=== PATIENT | male | born 1995 | race Caucasian/White ===

== ENCOUNTER → 2017-07-23 | Outpatient (CLI) | payer OTHER | END | disposition home or self-care (01) | LOC: C.LAB1850 13:00 | PROVIDERS: ATTEND Internal Medicine Endocrinology, Diabetes & Metabolism | DX: E10.41 Type 1 diabetes mellitus with diabetic mononeuropathy (principal) ==

== ENCOUNTER 2024-03-26 18:57 | Inpatient (IN) ==
[2024-03-26] MEDS: ONDANSETRON INJ 2 MG/ML 2 ML VIAL IV STA (19:46)
[2024-03-26 20:16] LABS: Hematocrit (blood only) 39.2 % (42.0-52.0); Hemoglobin 13.6 g/dl (14.0-18.0); Mean Corpuscular Hemoglobin 30.2 pg (25.0-34.0); Mean Corpuscular Hgb Conc 34.7 g/dL (32.0-36.0); Mean Corpuscular Volume 87.1 fL (80.0-100.0); Mean Platelet Volume 10.7 fL (9.4-12.4); Platelet Count 431 K/uL (130-400); RDW Standard Deviation 38.6 fL (36.4-46.3)
[2024-03-26 20:23] LABS: Anion Gap 11 (3-11); BUN Creatinine Ratio 14.5 (10-20); Blood Urea Nitrogen 21 mg/dl (6-23); Calcium 11.2 mg/dl (8.6-10.3); Carbon Dioxide 27 mmol/L (21-32); Chloride 100 mmol/L (98-107); Est GFR (African American) 74.9 ml/min; Est GFR (Non-African American) 64.6 ml/min; Glucose 149 mg/dl (70-99(Fasting)); Potassium 4.4 mmol/L (3.5-5.1); Sodium 138 mmol/L (136-145)
[2024-03-26 20:24] LABS: Alanine Aminotransferase 18 U/L (7-52); Albumin Globulin Ratio 1.8 (0.9-2); Albumin Level 5.5 gm/dl (3.4-5.0); Alkaline Phosphatase 72 U/L (34-104); Aspartate Aminotransferase 18 U/L (13-39); Bilirubin,Total 0.7 mg/dl (0.2-1.0); Lipase < 3 U/L (11-82); Total Protein 8.5 gm/dl (6.0-8.3)
[2024-03-26 20:31] LABS: Basophils # (auto) 0.06 K/uL (0.00-0.20); Basophils % (auto) 0.3 %; Immature Granulocytes # (auto) 0.08 K/uL (0.01-0.20); Immature Granulocytes % (auto) 0.4 %; Lymphocytes # (auto) 1.25 K/uL (1.20-3.40); Lymphocytes % (auto) 6.2 %; Monocytes # (auto) 0.46 K/uL (0.11-0.59); Monocytes % (auto) 2.3 %; Neutrophils # (auto) 18.35 K/uL (1.40-6.50); Neutrophils % (auto) 90.8 %; Toxic Granulation 1+
[2024-03-26 20:44] LABS: Appearance Urine Clear (Clear); Bacteria Urine Automated None Seen (None Seen); Bilirubin Urine Negative (Negative); Blood Urine Negative (Negative); Cast Urine Automated 0-2 /lpf (0-2); Color Urine Yellow; Epithelial Cell Urine Auto 0-2 /hpf (0-2); Glucose Urine UA Negative (Negative); Ketones Urine 1+ (Negative); Leukocyte Esterase Urine Trace (Negative); Nitrite Urine Negative (Negative); Protein Urine Negative (Negative); RBC Urine Automated 0-2 /hpf (0-2); Specific Gravity Urine 1.016 (1.000-1.030); Urobilinogen Urine Negative (Negative); WBC Urine Automated 0-5 /hpf (0-5)
[2024-03-26] MEDS: OPTIRAY 320 100ml IV ONE (22:21)
[2024-03-26] MEDS: FAMOTIDINE 20MG IV PUSH 20 MG/5 ML SYR IV STA (22:30)
[2024-03-26] MEDS: SODIUM CHLORIDE 0.9% 1,000 ML IV ONE (22:30)
[2024-03-26] MEDS: ACETAMINOPHEN 1,000 MG/100 ML VIAL IV STA (22:30)
[2024-03-26 22:31] LABS: Magnesium 1.9 mg/dl (1.7-2.4)
--- NOTE | 2024-03-26 22:52 | Emergency Department Note ---
History of Present Illness General Chief complaint: Nausea Time Seen by Provider: 03/26/24 21:33 History of Present Illness Maximum Pain Intensity: 9 This 28-year-old male with type 1 diabetes and history of gastroparesis presents ER for nausea vomiting and abdominal pain with concerns for recurrent gastroparesis. Patient normally goes to [facility] or [facility] but came here instead. Patient has chest pain, dyspnea, fever, chills, diarrhea, flulike illness, bad food exposure. Home Medications Medication Instructions Recorded Confirmed Type cyclobenzaprine 5 mg tablet 5 mg PO HS PRN MUSCLE SPASMS 04/30/19 03/26/24 History ergocalciferol (vitamin D2) 1,250 50,000 units PO WK 04/30/19 03/26/24 History mcg (50,000 unit) capsule ibuprofen 600 mg tablet 600 mg PO TID PRN fever or pain 04/30/19 03/26/24 History lancets (Microlet Lancet) #50 ea 04/30/19 03/18/24 History blood sugar diagnostic (Contour #100 ea 12/18/20 03/18/24 Rx Next Test Strips) blood-glucose meter,continuous #1 ea 12/18/20 03/18/24 Rx (Dexcom Briar Shop Supervisor) blood-glucose sensor (Dexcom G6 #3 ea 12/18/20 03/18/24 Rx Sensor device) blood-glucose transmitter (Dexcom #1 ea 12/18/20 03/18/24 Rx G6 Transmitter device) urine glucose-ketones test #50 ea 12/18/20 03/18/24 Rx (Keto-Diastix strips) lamotrigine 100 mg tablet 100 mg PO DAILY 03/18/24 03/26/24 History (Lamictal) levothyroxine 300 mcg tablet 300 mcg PO DAILY 03/18/24 03/26/24 History (Synthroid) linaclotide 145 mcg capsule 145 mcg PO DAILY #30 caps 03/18/24 03/26/24 Rx (Linzess) trazodone 50 mg tablet 50 mg PO DAILY 03/18/24 03/26/24 History glucagon HCl 1 mg/mL solution for 1 mg subcut DIRECTED PRN 03/26/24 03/26/24 History injection Hypoglycemia insulin aspart U-100 100 unit/mL 0 unit continuous subcutaneous 06/21/24 06/21/24 History subcutaneous solution (Novolog infusion CONTINOUS U-100 Insulin aspart) insulin glargine 100 unit/mL (3 25 unit subcut .COMPLEX PRN PUMP 03/26/24 03/26/24 History mL) subcutaneous pen (Basaglar FAILURE KwikPen U-100 Insulin) Allergies Allergy/AdvReac Type Severity Reaction Status Date / Time tramadol Allergy Intermediate Hives Verified 03/26/24 22:45 metoclopramide [From Reglan] AdvReac Unknown CAN'T Verified 03/26/24 22:45 REMEMBER Past Med/Surg History Problem List (Updated 03/27/24 @ 00:49 by Karly Sargent PA-C) Esophagitis (Acute) Abdominal pain (Acute) Intractable nausea and vomiting (Acute) Nausea & vomiting Constipation Gastroparesis Hypothyroidism, postablative (Acute) Uncontrolled type 1 diabetes mellitus (Acute) Social History Smoking Status: Current every day smoker Tobacco Type: E-cigarettes / Vaping Preferred Language: Arabic Feels Safe at Home: Yes Review of Systems A total of 10 systems reviewed and were otherwise negative Physical Exam Vital Signs Vital Signs - 24 hr 03/26/24 19:09 03/26/24 21:29 03/26/24 22:33 Temperature 37.3 C Temperature Source Oral Pulse Rate 119 H Pulse Rate [Finger] 98 H 98 H Pulse Rhythm [Finger] Regular Pulse Strength [Finger] Normal Respiratory Rate 20 20 16 Respiratory Effort / Characteristics Non-Labored Spontaneous Respiratory Depth Normal Blood Pressure 157/111 H Blood Pressure [Left Arm] 140/95 157/98 H Blood Pressure Mean 126 Blood Pressure Mean [Left Arm] 110 117 Blood Pressure Position [Left Arm] Sitting Pulse Oximetry 100 97 98 Oxygen Delivery Method Room Air Room Air Room Air Sepsis Recent Fever Within 48 Hours No Sepsis New/Unexplained Change in Mental Status No Sepsis Action Taken by Nursing No Action Required 03/26/24 23:00 Temperature Temperature Source Pulse Rate Pulse Rate [Finger] 102 H Pulse Rhythm [Finger] Pulse Strength [Finger] Respiratory Rate 18 Respiratory Effort / Characteristics Respiratory Depth Blood Pressure Blood Pressure [Left Arm] 123/87 Blood Pressure Mean Blood Pressure Mean [Left Arm] 99 Blood Pressure Position [Left Arm] Pulse Oximetry 96 Oxygen Delivery Method Sepsis Recent Fever Within 48 Hours Sepsis New/Unexplained Change in Mental Status Sepsis Action Taken by Nursing VITALS: Vitals are noted on the nurse's note and reviewed by myself. Vital signs stable. GENERAL: Pleasant patient with family present, in no acute distress, nondiaphoretic, well-developed well-nourished. SKIN: Capillary reflex less than 2 seconds. HEENT: Normocephalic. PERRLA. EOMI. Nares patent. Mucous membranes moist. Neck is supple without nuchal rigidity. HEART: Regular rate and rhythm LUNGS: Clear to auscultation bilaterally without wheezes, rales or rhonchi. No retractions or accessory muscle use. ABDOMEN: Positive bowel sounds x 4. Normal tympanic percussion. Soft, diffusely tender to palpation, without masses or organomegaly. Velasquez sign negative. No guarding or rebound tenderness. no CVA tenderness MUSCULOSKELETAL: No gross musculoskeletal defects. NEURO: Patient was alert and oriented to person place and time. No focal neurological deficits. Course Administered Medications Discontinued Medications Dicyclomine HCl (Dicyclomine Hcl 10 Mg/Ml 2 Ml Amp/Vial) 20 mg IM NOW ONE Stop: 03/26/24 23:37 Last Admin: 03/27/24 00:07 Dose: 20 mg Documented By: ALICIA Sodium Chloride (Nss) 1,000 mls @ 999 mls/hr IV .Q1H1M ONE Stop: 03/26/24 22:59 Last Infusion: 03/26/24 23:40 Dose: Infused Documented By: Admin: 03/26/24 22:30 Dose: 999 mls/hr Documented By: DADA Famotidine (Pepcid 20mg Iv Push) 20 mg in 5 mls @ 2.5 mls/min IV NOW STA Stop: 03/26/24 22:00 Last Admin: 03/26/24 22:30 Dose: 2.5 mls/min Documented By: DADA Acetaminophen (Ofirmev) 1,000 mg in 100 mls @ 400 mls/hr IV NOW STA Stop: 03/26/24 22:13 Last Infusion: 03/26/24 22:45 Dose: Infused Documented By: Admin: 03/26/24 22:30 Dose: 400 mls/hr Documented By: DADA Lactated Ringer's (Lr) 1,000 mls @ 999 mls/hr IV .Q1H1M ONE Stop: 03/27/24 00:37 Last Admin: 03/27/24 00:08 Dose: 999 mls/hr Documented By: ALICIA Promethazine HCl (Phenergan) 25 mg in 51 mls @ 204 mls/hr IV NOW STA Stop: 03/27/24 00:24 Last Infusion: 03/27/24 00:40 Dose: Infused Documented By: Admin: 03/27/24 00:24 Dose: 204 mls/hr Documented By: ALICIA Ioversol (Optiray 320 100ml) 89 ml IV ONCE ONE Stop: 03/26/24 22:21 Last Admin: 03/26/24 22:21 Dose: 89 ml Documented By: CLARE Ondansetron HCl (Ondansetron Inj 2 Mg/Ml 2 Ml Vial) 4 mg IV NOW STA Stop: 03/26/24 19:43 Last Admin: 03/26/24 19:46 Dose: 4 mg Documented By: JASWINDER Medical Decision Making Medical Records Attestation: I reviewed the patient's medical records. Home Medications Current Medication List: was personally reviewed by me Laboratory Data Attestation: I reviewed the patient's lab results. 03/26/24 19:46 03/26/24 19:46 Lab Results 03/26/24 03/26/24 Range/Units 19:44 19:46 WBC 20.20 H (4.8-10.8) K/ul RBC 4.50 L (4.70-6.10) M/uL Hgb 13.6 L (14.0-18.0) g/dl Hct 39.2 L (42.0-52.0) % MCV 87.1 (80.0-100.0) fL MCH 30.2 (25.0-34.0) pg MCHC 34.7 (32.0-36.0) g/dL RDW Std Deviation 38.6 (36.4-46.3) fL RDW Coeff of [place] 12.0 (11.5-14.5) % Plt Count 431 H (130-400) K/uL MPV 10.7 (9.4-12.4) fL Immature Gran % (Auto) 0.4 % Neut % (Auto) 90.8 % Lymph % (Auto) 6.2 % Parker % (Auto) 2.3 % Eos % (Auto) 0.0 % Baso % (Auto) 0.3 % Neut # (Auto) 18.35 H (1.40-6.50) K/uL Lymph # (Auto) 1.25 (1.20-3.40) K/uL Parker # (Auto) 0.46 (0.11-0.59) K/uL Eos # (Auto) 0.00 (0.00-0.50) K/uL Baso # (Auto) 0.06 (0.00-0.20) K/uL Immature Gran # (Auto) 0.08 (0.01-0.20) K/uL Toxic Granulation 1+ Sodium 138 (136-145) mmol/L Potassium 4.4 (3.5-5.1) mmol/L Chloride 100 (98-107) mmol/L Carbon Dioxide 27 (21-32) mmol/L Anion Gap 11 (3-11) BUN 21 (6-23) mg/dl Creatinine 1.45 H (0.6-1.4) mg/dl Est Cr Clr Drug Dosing 61.0 ml/min Est GFR ( Amer) 74.9 ml/min Est GFR (Non-Af Amer) 64.6 ml/min BUN/Creatinine Ratio 14.5 (10-20) Glucose 149 H (70-99(Fasting)) mg/dl POC Glucose 146 H (70-99) mg/dl Calcium 11.2 H (8.6-10.3) mg/dl Magnesium 1.9 (1.7-2.4) mg/dl Total Bilirubin 0.7 (0.2-1.0) mg/dl AST 18 (13-39) U/L ALT 18 (7-52) U/L Alkaline Phosphatase 72 (34-104) U/L Total Protein 8.5 H (6.0-8.3) gm/dl Albumin 5.5 H (3.4-5.0) gm/dl Globulin 3.0 (2.5-4.0) gm/dl Albumin/Globulin Ratio 1.8 (0.9-2) Lipase < 3 L (11-82) U/L Urine Color Yellow Urine Appearance Clear (Clear) Urine pH 7.0 (4.5-7.5) Ur Specific [place] 1.016 (1.000-1.030) Urine Protein Negative (Negative) Urine Glucose (UA) Negative (Negative) Urine Ketones 1+ H (Negative) Urine Blood Negative (Negative) Urine Nitrite Negative (Negative) Urine Bilirubin Negative (Negative) Urine Urobilinogen Negative (Negative) Ur Leukocyte Esterase Trace H (Negative) Urine WBC (Auto) 0-5 (0-5) /hpf Urine RBC (Auto) 0-2 (0-2) /hpf U Hyaline Cast (Auto) 0-2 (0-2) /lpf U Epithel Cells (Auto) 0-2 (0-2) /hpf Urine Bacteria (Auto) None Seen (None Seen) Urine Opiates Screen Neg (Neg) Ur Methadone, Qual Neg (Neg) Urine Fentanyl Screen Neg (Neg) Urine Barbiturates Neg (Neg) Ur Phencyclidine (PCP) Neg (Neg) U Amphetamin/Meth Scrn Neg (Neg) MDMA (Ecstasy) Screen Neg (Neg) U Benzodiazepines Scrn Neg (Neg) Ur Cocaine Metabolite Neg (Neg) U Marijuana (THC) Screen Neg (Neg) Imaging Data Attestation: I personally reviewed and interpreted this imaging study as follows: Radiologist's Impression: Abdomen/Pelvis CT 03/26/24 21:59 Exam(s): CT ABDOMEN + PELVIS With Contrast IV Amt: 89 ml optiray 320 EXAM: CT Abdomen and Pelvis With Intravenous Contrast CLINICAL HISTORY: Reason for exam: n/v, mid abd pain. TECHNIQUE: Axial computed tomography images of the abdomen and pelvis with intravenous contrast. CTDI is 7.22 mGy and DLP is 330.84 mGy-cm. Automated exposure control was utilized for the study. A dose lowering technique was utilized adhering to the principles of ALARA. CONTRAST: Patient received 89 ml optiray 320 of IV contrast COMPARISON: No relevant prior studies available. FINDINGS: Lung bases: Unremarkable. No mass. No consolidation. Mediastinum: Distal esophageal wall thickening. ABDOMEN: Liver: Unremarkable. No mass. Gallbladder and bile ducts: Unremarkable. No calcified stones. No ductal dilation. Pancreas: Unremarkable. No mass. No ductal dilation. Spleen: Unremarkable. No splenomegaly. Adrenals: Unremarkable. No mass. Kidneys and ureters: Hyperdensities within the kidneys likely reflects contrast excretion rather than stones. No hydronephrosis. Stomach and bowel: Unremarkable. No obstruction. No mucosal thickening. PELVIS: Appendix: Right lower quadrant postsurgical changes, likely appendectomy. Bladder: Bladder wall thickening of somewhat distended bladder. Reproductive: Unremarkable as visualized. ABDOMEN and PELVIS: Intraperitoneal space: Minimal free fluid in the pelvis. No free air. Bones/joints: No acute fracture. No dislocation. Soft tissues: Unremarkable. Vasculature: Unremarkable. No abdominal aortic aneurysm. Lymph nodes: Unremarkable. No enlarged lymph nodes. IMPRESSION: 1. Distal esophageal wall thickening. May represent esophagitis. 2. Bladder wall thickening of somewhat distended bladder. Correlate for cystitis. 3. Minimal free fluid in the pelvis. Nonspecific although atypical in males. Electronically signed by: Foreign Rhodes M.D. 03/27/24 00:22 AM MDM Narrative Prior records/ancillary studies reviewed. Triage Nursing notes reviewed. Additional history obtained from family. The patient's history was concerning for nausea vomiting and abdominal pain. Differential diagnosis: Etiologies such as gastroparesis, DKA, appendicitis, diverticulitis, PUD, biliary pathology, UTI, pancreatitis, obstruction, mesenteric ischemia, aortic pathology, infections, inflammatory bowel disease, renal colic, as well as others were entertained. Physical examination findings: As above. ER treatment provided: An order was placed for continuous cardiac monitoring. The monitor shows a rate of 60-100 with a sinus rhythm per my Independent interpretation. IV fluids, Zofran, Pepcid, Tylenol was ordered, Protonix for esophagitis was ordered Phenergan and Bentyl were given On reassessment the patient felt better. Diagnostics interpreted by me: The labs Independently Interpreted by myself revealed leukocytosis, negative urine, hyperglycemia without DKA Imaging studies: CT as above Consultation: A consultation was placed with the hospitalist. The case was discussed and diagnostics were reviewed. The patient was evaluated in the ER for further treatment. Exam and history seem consistent with intractable nausea and vomiting. Patient still felt quite nauseous. He is requesting admission. Medicine was consulted and case discussed. He will be evaluated by the medical service for possible admission. By the evaluation outlined above emergent etiologies such as appendicitis, diverticulitis, PUD, biliary pathology, UTI, pancreatitis, obstruction, mesenteric ischemia, aortic pathology, inflammatory bowel disease, renal colic, as well as others were deemed relatively unlikely. The pt informed about the findings as listed above. All questions were answered and pleased with the treatment. The chart was completed utilizing [employer] voice recognition software. Grammatical errors, random word insertions, pronoun errors, and incomplete sentences are an occassional consequence of this system due to software limitations, ambient noise, and hardware issues. Any formal questions or concerns about the content, text, or information contained within the body of this dictation should be directly addressed to the physician personal care assistant for clarification. Impression & Plan Intractable nausea and vomiting, Abdominal pain, Esophagitis Discharge Plan Visit Data Chief Complaint: Nausea ED Provider: Jose Hernandez ED Midlevel Provider: Kalry Sargent Discharge Problem: Intractable nausea and vomiting, Abdominal pain, Esophagitis Patient Disposition: Being Evaluated by Hospitalist Condition: Good Forms Stand Alone Forms: [facility] [employer] Prescriptions Prescriptions: No Action cyclobenzaprine 5 mg tablet 5 mg PO HS PRN (Reason: MUSCLE SPASMS) ibuprofen 600 mg tablet 600 mg PO TID PRN (Reason: fever or pain) (DME) lancets [Microlet Lancet] misc See Dose Instructions .ROUTE .MEDSUPPLY Qty: 50 Rx Instructions: Check blood sugars 6 times daily ergocalciferol (vitamin D2) 50,000 unit capsule 50,000 units PO WK (DME) Contour Next Test Strips Strip See Dose Instructions .ROUTE .MEDSUPPLY Qty: 100 2RF Rx Instructions: use to check blood sugars 6 times daily or as directed (DME) Dexcom [employer]ar [employer] Supervisor Misc See Rx Instructions .ROUTE .MEDSUPPLY Qty: 1 0RF Rx Instructions: As directed (DME) Dexcom G6 Sensor Device See Rx Instructions .ROUTE .MEDSUPPLY Qty: 3 11RF Rx Instructions: As directed (DME) Dexcom G6 Transmitter Device See Rx Instructions .ROUTE .MEDSUPPLY Qty: 1 3RF Rx Instructions: As directed (DME) Keto-Diastix Strip See Dose Instructions .ROUTE .MEDSUPPLY Qty: 50 0RF Rx Instructions: As directed levothyroxine [Synthroid] 300 mcg tablet 300 mcg PO DAILY lamotrigine [Lamictal] 100 mg tablet 100 mg PO DAILY trazodone 50 mg tablet 50 mg PO DAILY Linzess 145 mcg capsule 145 mcg PO DAILY Qty: 30 2RF insulin aspart U-100 [Novolog U-100 Insulin aspart] 100 unit/mL solution 0 unit continuous subcutaneous infusion CONTINOUS Rx Instructions: insulin pump subcut daily; TDD 70 units insulin glargine [Basaglar KwikPen U-100 Insulin] 100 unit/mL (3 mL) insulin pen 25 unit SQ .COMPLEX PRN (Reason: PUMP FAILURE) Rx Instructions: 25 units subcut in case of pump failure glucagon HCl 1 mg/mL recon soln 1 mg subcut DIRECTED PRN (Reason: Hypoglycemia) Rx Instructions: 1 mg subcut use as directed for hypoglycemic emergency; Referrals Referrals: Dimas Pierce D.O. [Primary Care Provider] -
[2024-03-26 23:16] LABS: Amphetamines+Metham, Urine Neg (Neg); Barbiturates, Urine Neg (Neg); Benzodiazepine, Urine Neg (Neg); Cocaine, Urine Neg (Neg); Fentanyl, Urine Neg (Neg); MDMA (Ecstacy), Urine Neg (Neg); Marijuana, Urine Neg (Neg); Methadone, Urine Neg (Neg); Opiate, Urine Neg (Neg); Phencyclidine, Urine Neg (Neg)
[2024-03-27] MEDS: DICYCLOMINE HCL 10 MG/ML 2 ML AMP/VIAL IM ONE (00:07)
[2024-03-27] MEDS: LACTATED RINGER'S 1,000 ML IV ONE (00:08)
--- NOTE | 2024-03-27 00:23 | CT Scan Report ---
Exam(s): CT ABDOMEN + PELVIS With Contrast IV Amt: 89 ml optiray 320 EXAM: CT Abdomen and Pelvis With Intravenous Contrast CLINICAL HISTORY: Reason for exam: n/v, mid abd pain. TECHNIQUE: Axial computed tomography images of the abdomen and pelvis with intravenous contrast. CTDI is 7.22 mGy and DLP is 330.84 mGy-cm. Automated exposure control was utilized for the study. A dose lowering technique was utilized adhering to the principles of ALARA. CONTRAST: Patient received 89 ml optiray 320 of IV contrast COMPARISON: No relevant prior studies available. FINDINGS: Lung bases: Unremarkable. No mass. No consolidation. Mediastinum: Distal esophageal wall thickening. ABDOMEN: Liver: Unremarkable. No mass. Gallbladder and bile ducts: Unremarkable. No calcified stones. No ductal dilation. Pancreas: Unremarkable. No mass. No ductal dilation. Spleen: Unremarkable. No splenomegaly. Adrenals: Unremarkable. No mass. Kidneys and ureters: Hyperdensities within the kidneys likely reflects contrast excretion rather than stones. No hydronephrosis. Stomach and bowel: Unremarkable. No obstruction. No mucosal thickening. PELVIS: Appendix: Right lower quadrant postsurgical changes, likely appendectomy. Bladder: Bladder wall thickening of somewhat distended bladder. Reproductive: Unremarkable as visualized. ABDOMEN and PELVIS: Intraperitoneal space: Minimal free fluid in the pelvis. No free air. Bones/joints: No acute fracture. No dislocation. Soft tissues: Unremarkable. Vasculature: Unremarkable. No abdominal aortic aneurysm. Lymph nodes: Unremarkable. No enlarged lymph nodes. IMPRESSION: 1. Distal esophageal wall thickening. May represent esophagitis. 2. Bladder wall thickening of somewhat distended bladder. Correlate for cystitis. 3. Minimal free fluid in the pelvis. Nonspecific although atypical in males. Electronically signed by: Foreign Rhodes M.D. 03/27/24 00:22 AM
[2024-03-27] MEDS: PROMETHAZINE 25 MG/51 ML BAG IV STA (00:24)
--- NOTE | 2024-03-27 01:43 | History & Physical Report ---
"Date of Service March 27, 2024 Assessment & Plan (1) Esophagitis: (2) Nausea & vomiting: (3) Gastroparesis: (4) Constipation: (5) Hypothyroidism, postablative: (6) Uncontrolled type 1 diabetes mellitus: Carolina Uribe is a 28M w/ PMH of T1DM, hypothyroidism, gastroparesis, and constipation who presents for evaluation of nausea and vomiting. Esophagitis | Nausea/Emesis & Constipation - Patient with known uncontrolled T1DM - GI record review notes that patient often has nausea/emesis flares in setting of constipation - Admissions q2-3 weeks for nausea/emesis in setting of gastroparesis over last 3-4 months Typically presents to [facility] - CTAP w/ evidence of esophagitis and increased stool burden Continue Pantoprazole, start Carafate for Esophagitis Start Miralax BID scheduled for constipation - Leukocytosis w/ neutrophil predominance on presentation Afebrile, hemodynamically stable - Calcium level elevated, but w/ albumin level, corrected to 10 (wnl) - LR @ 125 mL/hr started on admission T1DM | Gastroparesis - Continue own CGM and Pump - AM A1c pending Elevated Creatinine (1.45) - Baseline uncertain, trend inpatient - Fluid resuscitation provided as above Chronic Conditions - Hypothyroidism - continue Synthroid - Mental Health - continue Lamotrigine and Trazodone History of Present Illness Primary Care Provider: Solomon Taviaceline Uribe is a 28M w/ PMH of T1DM, hypothyroidism, gastroparesis, and constipation who presents for evaluation of nausea and vomiting. Patient sleeping upon arrival and unwilling to awaken to provide history. Girlfriend at bedside, noting patient presenting for nausea and vomiting and that this has been happening frequently over the last 3-4 months. She notes no changes in his home T1DM management, but states that he remains constipated despite Linzess and has not been using Miralax. Patient continues to use CGM and pump (which is currently full). He has a longstanding history of gastroparesis with associated nausea and emesis. Prior GI notes indicating that emesis episodes often correlate with constipation. No further HPI from patient. Allergies Allergy/AdvReac Type Severity Reaction Status Date / Time tramadol Allergy Intermediate Hives Verified 03/26/24 22:45 metoclopramide [From Reglan] AdvReac Unknown CAN'T Verified 03/26/24 22:45 REMEMBER Home Medications Medication Instructions Recorded Confirmed Type cyclobenzaprine 5 mg tablet 5 mg PO HS PRN MUSCLE SPASMS 04/30/19 03/26/24 History ergocalciferol (vitamin D2) 1,250 50,000 units PO WK 04/30/19 03/26/24 History mcg (50,000 unit) capsule ibuprofen 600 mg tablet 600 mg PO TID PRN fever or pain 04/30/19 03/26/24 History lancets (Microlet Lancet) #50 ea 04/30/19 03/18/24 History blood sugar diagnostic (Contour #100 ea 12/18/20 03/18/24 Rx Next Test Strips) blood-glucose meter,continuous #1 ea 12/18/20 03/18/24 Rx ([employer] Compliance Manager) blood-glucose sensor (Dexcom G6 #3 ea 12/18/20 03/18/24 Rx Sensor device) blood-glucose transmitter (Dexcom #1 ea 12/18/20 03/18/24 Rx G6 Transmitter device) urine glucose-ketones test #50 ea 12/18/20 03/18/24 Rx (Keto-Diastix strips) lamotrigine 100 mg tablet 100 mg PO DAILY 03/18/24 03/26/24 History (Lamictal) levothyroxine 300 mcg tablet 300 mcg PO DAILY 03/18/24 03/26/24 History (Synthroid) linaclotide 145 mcg capsule 145 mcg PO DAILY #30 caps 03/18/24 03/26/24 Rx (Linzess) trazodone 50 mg tablet 50 mg PO DAILY 03/18/24 03/26/24 History glucagon HCl 1 mg/mL solution for 1 mg subcut DIRECTED PRN 03/26/24 03/26/24 History injection Hypoglycemia insulin aspart U-100 100 unit/mL 0 unit continuous subcutaneous 03/26/24 03/26/24 History subcutaneous solution (Novolog infusion CONTINOUS U-100 Insulin aspart) insulin glargine 100 unit/mL (3 25 unit subcut .COMPLEX PRN PUMP 03/26/24 03/26/24 History mL) subcutaneous pen (Basaglar FAILURE KwikPen U-100 Insulin) Past Med/Surg History Problem List (Updated 03/27/24 @ 00:49 by Karly Sargent PA-C) Esophagitis (Acute) Abdominal pain (Acute) Intractable nausea and vomiting (Acute) Nausea & vomiting Constipation Gastroparesis Hypothyroidism, postablative (Acute) Uncontrolled type 1 diabetes mellitus (Acute) Social History Smoking Status: Current every day smoker Tobacco Type: E-cigarettes / Vaping Do You Dip or Chew Tobacco: No; Hx Alcohol Use: No Hx Substance Use: No Preferred Language: Spanish Communication Ability: Effective Communication Ability Comment: pt is very fatigued at this time Beef Trimmer Required: No Beliefs That Will Affect Care: None Current Living Situation: Other Current Living Situation Comment: with friend Other Information That Helps Us Care for You: No Feels Safe at Home: Yes Safety Concerns: Feels Safe At This Time Assistive Devices: Glasses and Other Assistive Devices Comment: Medtronic insulin pump, Dexcom continuous glucose mo nitor Physical Exam Physical Exam: Gen: Asleep, arousable, unwilling to converse HEENT: Supple, no LAD, dry mucous membranes Resp:Non-labored, no wheezing/rhonchi/rales, CTAB CV:RRR, normal S1/S2, no M/R/G Abd: Soft, non-distended, TTP throughout, no rebound or guarding, normoactive bowels, no masses Extr: 2+ dp bilaterally, no edema Skin: No rashes lesions or erythema Results & Data Results & Data Vital Signs (Past 12 Hours) Vital Signs Temp Pulse Pulse Resp BP BP Pulse Ox 03/27/24 01:00 96 H 16 106/65 94 03/27/24 00:00 103 H 17 119/76 95 03/26/24 23:00 102 H 18 123/87 96 03/26/24 22:33 98 H 16 157/98 H 98 03/26/24 21:29 98 H 20 140/95 97 03/26/24 19:09 37.3 C 119 H 20 157/111 H 100 O2 Del Method 03/27/24 01:00 03/27/24 00:00 03/26/24 23:00 03/26/24 22:33 Room Air 03/26/24 21:29 Room Air 03/26/24 19:09 Room Air Supervising Physician Co-Signing Physician Notes Attending addendum: I have physically seen this patient, have supervised the medical residents activities, and agree with the H&P unless as otherwise noted. Assessment and Plan: Esophagitis/gastroparesis/intractable nausea and vomiting- Symptoms are noted to occur secondary to constipation per GI notes Frequent hospitalizations at [place] and out to the hospitals as noted over the past few months Pantoprazole 40 mg p.o. twice daily Start Carafate MiraLAX twice daily as noted for constipation Recently started on Linzess by GI Has failed multiple medications in the past Outpatient GI notes have recommended tertiary care assessment more advanced treatment Diabetes mellitus- Patient will continue on pump Hemoglobin A1c pending Acute kidney injury- Creatinine 1.45, with base 1.26 IV fluids as noted Recheck laboratories in the a.m. Resident Activity Tracking Resident Involvement: Resident Care Provided Care Provided: Adult Hospital Medicine"
[2024-03-27] MEDS: PANTOprazole 80 MG in DEXTROSE 5% 100 ML IV STA (01:59)
[2024-03-27] MEDS ORDERED: DEXTROSE 50% 50 ML SYRINGE IV PRN (03:45)
[2024-03-27] MEDS ORDERED: INSULIN, Rapid-Acting PUMP SC SCH (03:45)
[2024-03-27] MEDS ORDERED: INSULIN ASPART 100 UNITS/ML VIAL SC PRN (03:45)
[2024-03-27] MEDS ORDERED: CARBOHYDRATES FOR HYPOGLYCEMIA PO PRN (03:45)
[2024-03-27] MEDS ORDERED: GLUCOSE 40% GEL 15 GM TUBE PO PRN (03:45)
[2024-03-27] MEDS ORDERED: GLUCAGON FOR INJ 1 MG VIAL SQ PRN (03:45)
[2024-03-27] MEDS ORDERED: GLUCOSE 10 TAB/TUBE PO PRN (03:45)
[2024-03-27] MEDS: LACTATED RINGER'S 1,000 ML IV SCH (05:22)
[2024-03-27] MEDS: ONDANSETRON INJ 2 MG/ML 2 ML VIAL IV PRN (05:48)
[2024-03-27] MEDS: Continuous Glucose Monitor SCH ×2 (06:24→17:01)
[2024-03-27] MEDS: LEVOTHYROXINE SODIUM 150 MCG TABLET PO SCH (06:25)
[2024-03-27] MEDS: IBUPROFEN 600 MG TAB PO PRN (07:57)
[2024-03-27] MEDS: PROMETHAZINE HCL 6.25 MG in SODIUM CHLORIDE 0.9% 50 ML IV PRN (08:08)
[2024-03-27] MEDS: PANTOprazole 40 MG in SYRINGE 0 ML IV SCH (08:56)
[2024-03-27] MEDS: POLYETHYLENE (MIRALAX) 17 GM PACK PO SCH (08:56)
[2024-03-27] MEDS: lamoTRIgine 100 MG TAB PO SCH (08:56)
[2024-03-27] MEDS: SUCRALFATE 1 GM/10 ML UDC PO SCH (08:57)
[2024-03-27] MEDS: LINACLOTIDE 145 MCG CAPSULE PO SCH (08:57)
[2024-03-27] MEDS ORDERED: traZODone HCL 50 MG TAB PO SCH (09:00)
[2024-03-27] MEDS: ACETAMINOPHEN 1,000 MG/100 ML VIAL IV PRN (10:18)
[2024-03-27 10:35] LABS: Hematocrit (blood only) 30.8 % (42.0-52.0); Hemoglobin 10.5 g/dl (14.0-18.0); Mean Corpuscular Hemoglobin 30.2 pg (25.0-34.0); Mean Corpuscular Hgb Conc 34.1 g/dL (32.0-36.0); Mean Corpuscular Volume 88.5 fL (80.0-100.0); Mean Platelet Volume 11.1 fL (9.4-12.4); Platelet Count 305 K/uL (130-400); RDW Coefficient of Variation 12.3 % (11.5-14.5); RDW Standard Deviation 39.7 fL (36.4-46.3); Red Blood Count 3.48 M/uL (4.70-6.10); White Blood Count 16.78 K/ul (4.8-10.8)
[2024-03-27 10:36] LABS: Estimated Average Glucose 143 mg/dl; Hemoglobin A1C 6.6 % (4.5-5.6)
[2024-03-27 10:37] LABS: Alanine Aminotransferase 12 U/L (7-52); Albumin Globulin Ratio 1.8 (0.9-2); Alkaline Phosphatase 53 U/L (34-104); Anion Gap 6 (3-11); Aspartate Aminotransferase 14 U/L (13-39); BUN Creatinine Ratio 13.8 (10-20); Bilirubin,Total 0.5 mg/dl (0.2-1.0); Blood Urea Nitrogen 18 mg/dl (6-23); Calcium 9.6 mg/dl (8.6-10.3); Carbon Dioxide 27 mmol/L (21-32); Chloride 108 mmol/L (98-107); Creatinine Clr Calc Pharmacy 68.5 ml/min; Est GFR (African American) 85.5 ml/min; Est GFR (Non-African American) 73.7 ml/min; Globulin 2.2 gm/dl (2.5-4.0); Glucose 112 mg/dl (70-99(Fasting)); Lipase < 3 U/L (11-82); Potassium 4.3 mmol/L (3.5-5.1); Sodium 141 mmol/L (136-145); Total Protein 6.2 gm/dl (6.0-8.3)
[2024-03-27] MEDS ORDERED: Nursing to Pharmacy Communication SCH (14:30)
[2024-03-27] MEDS: MAGNESIUM HYDROXIDE SUSP 30 ML UDC PO PRN (14:50)
--- NOTE | 2024-03-27 16:17 | Hospitalist Progress Note ---
"Date of Service March 27, 2024 Assessment & Plan (1) Esophagitis: (2) Nausea & vomiting: (3) Gastroparesis: (4) Constipation: (5) Hypothyroidism, postablative: (6) Uncontrolled type 1 diabetes mellitus: Carolina Uribe is a 28M w/ PMH of T1DM, hypothyroidism, gastroparesis, and constipation who presents for evaluation of nausea and vomiting. Esophagitis | Nausea/Emesis & Constipation - Patient with known uncontrolled T1DM - GI record review notes that patient often has nausea/emesis flares in setting of constipation - Admissions q2-3 weeks for nausea/emesis in setting of gastroparesis over last 3-4 months Typically presents to [facility] - CTAP w/ evidence of esophagitis and increased stool burden Continue Pantoprazole, start Carafate for Esophagitis Start Miralax BID scheduled for constipation, add milk of mag prn and prn sup pository - Leukocytosis w/ neutrophil predominance on presentation Afebrile, hemodynamically stable - improving without steroids - CXR without infectious process - Clear liquid diet - Check urine porphyria - Check celiac titer T1DM | Gastroparesis - Continue own CGM and Pump - A1c 6.6 Elevated Creatinine (1.45) - Baseline uncertain, trend inpatient - improved with IVFs Chronic Conditions - Hypothyroidism - continue Synthroid - Mental Health - continue Lamotrigine and Trazodone Admission and Anticipated Discharge Date Admission Date: March 27, 2024 Supervising Physician Co-Signing Physician Notes Attending Attestation - Chart reviewed, care plan d/w ALCON Brenner. I agree w/ the ponce components of her documentation. Check TSH. Check celiac panel/TTGs. Check urine porphyrins given episodic nature of abdominal pain spells. Bright Yoder MD Subjective Patient seen this afternoon - reports abdominal pain and nausea. Has long history of constipation and gastroparesis, with frequent admission, but ususally goes to [facility] or [facility] no BM in 3 days diffuse abdominal pain Review of Systems Review of Systems: All systems reviewed & are unremarkable except as noted in Subjective Physical Exam Physical Exam: General: NAD, thin, VS as above Resp: normal respiratory effort, lungs clear to auscultation CV: RRR, no murmur, Abd: normal bowel sounds, soft, mild diffuse tenderness, no guarding, no hepatosplenomegaly Extremities: Moves all extremities, no edema Neuro: A&O x3, Results & Data Results & Data Vital Signs (Past 12 Hours) Vital Signs Temp Pulse Resp BP Pulse Ox O2 Del Method 03/27/24 14:44 37.1 C 89 16 136/84 98 Room Air 03/27/24 08:51 99 H 135/85 97 Room Air 03/27/24 08:50 Room Air 03/27/24 07:40 37.1 C 108 H 16 169/100 H 97 Room Air Laboratory Results CBC and chemistry reviewed PG Care Time/CCT Total # of Minutes Spent Total Time Spent with Patient: Total time spent is greater than 50% in coordination of care (as documented) at patient's floor/unit and/or counseling patient: Coding Level of Care Code None Diagnoses Esophagitis K20.90 Nausea & vomiting R11.2 Gastroparesis K31.84 Constipation K59.00 Hypothyroidism, postablative E89.0 Uncontrolled type 1 diabetes mellitus E10.65"
--- NOTE | 2024-03-27 19:14 | Billing Data ---
Date of Service March 27, 2024 Coding Level of Care Code 09631 INT INP/OBS CARE
--- NOTE | 2024-03-27 20:28 | XRay Report ---
SINGLE VIEW CHEST CLINICAL HISTORY: Cough. Leukocytosis FINDINGS: An AP, portable, upright chest radiograph obtained. No prior studies are available for vianca crystal at the time of dictation. The cardiomediastinal silhouette is unremarkable. Question faint lef t upper lobe opacities . The lungs and pleural spaces are otherwise clear. No pneumothorax is seen. T he bony thorax is grossly intact. IMPRESSION: Question faint left upper lobe opacities. Correlate clinically for evidence of a mild pne umonitis. Radiographic follow-up to resolution is recommended. ACT 112: Negative or not required by law. Electronically signed by: Tera Lainez M.D. 03/27/2024 8:27 PM
[2024-03-27] MEDS: traZODone HCL 50 MG TAB PO SCH (20:36)
[2024-03-28] MEDS: PROCHLORPERAZINE 5 MG in SYRINGE 4 ML IV ONE (01:40)
[2024-03-28 06:09] LABS: Hematocrit (blood only) 33.4 % (42.0-52.0); Hemoglobin 11.3 g/dl (14.0-18.0); Mean Corpuscular Hemoglobin 30.1 pg (25.0-34.0); Mean Corpuscular Hgb Conc 33.8 g/dL (32.0-36.0); Mean Corpuscular Volume 89.1 fL (80.0-100.0); Mean Platelet Volume 10.8 fL (9.4-12.4); Platelet Count 304 K/uL (130-400); Red Blood Count 3.75 M/uL (4.70-6.10); White Blood Count 10.32 K/ul (4.8-10.8)
[2024-03-28 06:28] LABS: BUN Creatinine Ratio 12.6 (10-20); Calcium 9.8 mg/dl (8.6-10.3); Creatinine Clr Calc Pharmacy 70.2 ml/min; Est GFR (African American) 87.9 ml/min; Est GFR (Non-African American) 75.8 ml/min; Potassium 4.1 mmol/L (3.5-5.1)
[2024-03-28 09:59] LABS: Thyroid Stimulating Hormone 0.042 uIu/ml (0.300-4.500)
[2024-03-28] MEDS: bisacodyL 10 MG SUPP PR PRN (10:54)
[2024-03-28] MEDS: KETOROLAC TROMETHAMINE 15 MG/ML VIAL IV ONE (11:44)
--- NOTE | 2024-03-28 15:33 | Hospitalist Progress Note ---
Date of Service March 28, 2024 Assessment & Plan (1) Nausea & vomiting: Plan: Rony is a 28M w/ PMH of T1DM, hypothyroidism, gastroparesis, and constipation who presents for evaluation of nausea and vomiting. - Patient with known T1DM - GI record review notes that patient often has nausea/emesis flares in setting of constipation - Admissions q2-3 weeks for nausea/emesis in setting of gastroparesis over last 3-4 months Typically presents to [facility] - CTAP w/ evidence of esophagitis and increased stool burden Continue Pantoprazole, start Carafate for Esophagitis Start Miralax BID scheduled for constipation, add milk of mag prn and prn supp ository - Leukocytosis w/ neutrophil predominance on presentation. No source of infection. - improving without antibiotics, has not had steroids recently. - CXR without infectious process - Clear liquid diet - can advance as patient desires - urine porphyria pending - celiac titer pending 03/28: one time dose toradol provided for pain relief. If no BM and continued pain tomorrow, consider GI consult - Check PVR (2) Hypothyroidism, postablative: Plan: TSH 0.042 - possible contributing to his symptoms, patient reports that he has not had dose adjustment recently, hx of elevated TSH difficult to control - hold Synthroid for 03/29, recommend dose reduction at discharge Plan Chronic Conditions - Mental Health - continue Lamotrigine and Trazodone - T1DM - A1c 6.6, continue patient CGM and pump Dispo: continued inpatient stay DVT proh: low risk Admission and Anticipated Discharge Date Admission Date: March 27, 2024 Supervising Physician Co-Signing Physician Notes Attending Attestation - Chart reviewed, care plan d/w ALCON Brenner. I agree w/ the ponce components of her documentation. TSH suppressed c/w iatrogenic hyperthyroidism. Could be contributing to some of his GI symptoms and tachycardia. HOLD synthroid. Sent celiac panel/TTGs. Sent urine porphyrins. Bright Yoder MD Subjective Patient seen resting in bed, signifcant other present at bedside abdominal pain is on par with prior admissions for constipation but the nausea is worse, not able to keep things down no BM yet reports KOENIG thinks related to dehydration no prior GI diagnosis other than gastroparesis Review of Systems Review of Systems: All systems reviewed & are unremarkable except as noted in Subjective Physical Exam Physical Exam: General: NAD, thin, VS as above Resp: normal respiratory effort, lungs clear to auscultation CV: RRR, no murmur, Abd: normal bowel sounds, soft, mild diffuse tenderness, no guarding, no hepatosplenomegaly Extremities: Moves all extremities, no edema Neuro: A&O x3, Results & Data Results & Data Vital Signs (Past 12 Hours) Vital Signs Temp Pulse Resp BP Pulse Ox O2 Del Method 03/28/24 14:13 36.8 C 85 18 163/97 H 100 Room Air 03/28/24 07:37 107 H 163/101 H 03/28/24 07:35 Room Air 03/28/24 06:58 37 C 107 H 16 173/108 H 98 Room Air Laboratory Results CBC, chemistry and TSH reviewed PG Care Time/CCT Total # of Minutes Spent Total Time Spent with Patient: Total time spent is greater than 50% in coordination of care (as documented) at patient's floor/unit and/or counseling patient: Coding Level of Care Code 01822 SUB INP/OBS CARE 3/50MIN Diagnoses Nausea & vomiting R11.2 Hypothyroidism, postablative E89.0
[2024-03-28] MEDS: ONDANSETRON INJ 2 MG/ML 2 ML VIAL IV SCH (16:11)
[2024-03-28] MEDS: ACETAMINOPHEN 325 MG TAB PO PRN (19:53)
[2024-03-28] MEDS: MELATONIN 3 MG TAB PO PRN (21:13)
[2024-03-29 06:38] LABS: BUN Creatinine Ratio 9.9 (10-20); Est GFR (African American) 84.7 ml/min; Est GFR (Non-African American) 73.1 ml/min
[2024-03-29 10:28] LABS: Hematocrit (blood only) 29.7 % (42.0-52.0); Mean Corpuscular Hemoglobin 29.9 pg (25.0-34.0); Mean Corpuscular Hgb Conc 33.7 g/dL (32.0-36.0); Mean Corpuscular Volume 88.9 fL (80.0-100.0); Mean Platelet Volume 11.2 fL (9.4-12.4); Platelet Count 248 K/uL (130-400); RDW Standard Deviation 38.5 fL (36.4-46.3); Red Blood Count 3.34 M/uL (4.70-6.10); White Blood Count 6.58 K/ul (4.8-10.8)
--- NOTE | 2024-03-29 12:17 | Hospitalist Progress Note ---
Date of Service March 29, 2024 Assessment & Plan (1) Nausea & vomiting: Plan: Rony is a 28M w/ PMH of T1DM, hypothyroidism, gastroparesis, and constipation who presented for evaluation of nausea and vomiting. - Patient with known T1DM - GI record review notes that patient often has nausea/emesis flares in setting of constipation - Admissions q2-3 weeks for nausea/emesis in setting of gastroparesis over last 3-4 months. Typically presents to [facility] - CTA on admission with evidence of esophagitis and increased stool burden > Continue Pantoprazole, start Carafate for Esophagitis - CXR without infectious process - Start Miralax BID scheduled for constipation, add milk of mag prn and prn suppository - Leukocytosis w/ neutrophil predominance on presentation. No source of infection. > Resolved without antibiotics, has not had steroids recently. - Urine porphyria pending - Celiac titer pending - Patient was tolerating regular diet without increased abdominal pain or vomiting, however, in afternoon 03/29 he began vomiting. - Patient continued to have multiple episodes of emesis throughout the afternoon and evening. Reported 10/10 abdominal pain for most of afternoon. > Antiemetics administered with no relief. Pain meds administered with minimal relief, reported 8/10 pain. > KUB revealed moderate constipation, but no obstruction. > Fleets enema given, however nursing reported it was very difficult and painful for the patient. > Diet downgraded to clear liquids. > Ordered CRP, ESR to AM labs > Ordered mesentery Doppler ultrasound - not yet performed - Start losartan 25 mg p.o. every morning for hypertension. Recommend continuing this on discharge for renal protection in setting of T1DM - Ordered hydralazine as needed for hypertension with parameters - Pain control remains difficult as narcotics will further contribute to patient's constipation. - GI consulted. Appreciate recommendations > If antiemetics do not improve symptoms, consider short term oral erythromycin 250 mg TID before meals > Discussed making an appt with a tertiary center to discuss G-Poem vs gastric pacer > EGD scheduled for 03/30/24 to evaluate symptoms (2) Hypothyroidism, postablative: Plan: TSH 0.042 - possible contributing to his symptoms, patient reports that he has not had dose adjustment recently, hx of elevated TSH difficult to control - hold Synthroid, recommend dose reduction at discharge - Discuss with endocrine on when to resume Synthroid and what dosage to resume it at prior to discharge Plan Ordered Toradol, morphine for pain Ordered KUB and mesentery Doppler Ordered ESR, CRP to a.m. labs Ordered losartan, hydralazine Discussed case with radiology Consulted GI Chronic Conditions - Mental Health - continue Lamotrigine and Trazodone - T1DM - A1c 6.6, continue patient CGM and pump CODE STATUS: Full code Admission and Anticipated Discharge Date Admission Date: March 27, 2024 Supervising Physician Co-Signing Physician Notes Attending Attestation - Chart reviewed, care plan d/w ALCON Gil. I agree w/ the ponce components of her documentation. Appreciate GI consultation. EGD planned for tomorrow. Checked EKG - NSR, no ST changes. Checked KUB x-ray - moderate stool. If N/V are refractory could consider IV Emend. Bright Yoder MD Subjective Patient seen and evaluated in bedside chair while he was eating lunch. He reports that he feels the same as yesterday. He notes generalized abdominal pain/tenderness, mild nausea, and constipation. Per nursing, patient declined bowel regimen this morning. Patient has seen GI previously for gastroparesis. Patient reports he had very small bowel movement yesterday, but still feels constipated. GI consult was placed this morning for further recommendations in setting of continued abdominal pain, nausea, and constipation. Patient reports normal appetite, denies vomiting, denies urinary complaints. Patient is agreeable to seeing GI in the hospital. No additional complaints at this time. In afternoon, patient began vomiting and complained of headache. He had multiple episodes of emesis throughout the day. Complained of 10/10 abdominal pain for most of the afternoon. Multiple pain medications and antiemetics were given with minimal relief. Downgraded patient to clear liquid diet. He also remains hypertensive despite antihypertensive medication. KUB revealed constipation, but no obstruction. Attempted fleets enema, however per nursing, patient was screaming in pain and enema was very difficult. GI evaluated the patient and he is to get EGD tomorrow, 03/30/2024. Physical Exam Physical Exam: General: Patient in acute distress, nondiaphoretic, well-developed, thin. Skin: The skin was without rashes, erythema, edema, or bruising. Cardiac: Regular rhythm, tachycardic in 90s without murmurs gallops or rubs. Pulm: Clear to auscultation bilaterally without wheezes, rales or rhonchi. No retractions or accessory muscle use. Abdominal: Soft, nondistended. Severe diffuse abdominal tenderness, no guarding/rebound. Hypoactive bowel sounds. Neuro: A&O x3. No focal neurological deficits. Flat affect. Results & Data Results & Data Vital Signs (Past 12 Hours) Vital Signs Temp Pulse Resp BP BP Pulse Ox O2 Del Method 03/29/24 07:09 36.7 C 81 14 163/100 H 165/102 H 97 Room Air Laboratory Results Reviewed CBC Reviewed BMP Diagnostic Findings Reviewed KUB X-Ray 03/29/24 13:26 CLINICAL HISTORY: Gastroparesis. Generalized abdominal pain. Vomiting. FINDINGS: An AP portable, supine abdominal radiograph is correlated with abdominal CT dated 03/26/2024. Suture material projects over the right midabdomen. There is no bowel obstruction. Moderate fecal retention is seen throughout the colon. There is no evidence of intraperitoneal free air on this supine image. There are no abnormal abdominal calcifications. An indeterminate radiodensity projecting over the left abdomen may be external to the patient. The bony structures appear intact. IMPRESSION: Moderate constipation. PG Care Time/CCT Total # of Minutes Spent Total Time Spent with Patient: Total time spent is greater than 50% in coordination of care (as documented) at patient's floor/unit and/or counseling patient: Coding Level of Care Code 23068 SUB INP/OBS CARE 3/50MIN Diagnoses Nausea & vomiting R11.2 Hypothyroidism, postablative E89.0
--- NOTE | 2024-03-29 12:27 | Gastrointestinal Consultation ---
Date of Consultation March 29, 2024 Assessment & Plan (1) Abdominal pain: Plan 28 year old male with history of T1DM, gastroparesis and others admitted w/ nausea/vomiting, CT imaging with esophagitis Constipation Continue Linzess May add Miralax 1-2 capfuls daily Esophagitis Agree w/ PPI 40 mg twice daily Agree w/ course of QID liquid Carafate for 14 days Gastroparesis Antiemetics Liquid diet for now, advance to gastroparesis diet as tolerated Can continue scheduled Zofran May use Phenergan suppository 12.5 mg daily PRN Prokinetic agents Reglan is listed as an allergy If antiemetics do not improve symptoms, consider short term oral erythromycin 250 mg TID before meals Tertiary referral Discussed making an appt with a tertiary center to discuss G-Poem vs gastric pacer He should follow up with his established care team and a repeat EGD and GES can be arranged as these were last completed about six years ago. Thank you for allowing us to participate in the care of this patient. Please call with any acute changes, questions or concerns. Please see addendum below with additional recommendation from my supervising physician. Supervising Physician Co-Signing Physician Notes I examined the patient and reviewed patient's chart , laboratory data and imaging studies. I agree with with assessment and plan of care as suggested by advanced practice provider. Complex and intractable symptoms. Possibly underlying diabetic gastroparesis. EGD tomorrow to evaluate symptoms. History of Present Illness Reason for Consultation: gastroparesis Requesting Physician: Paresh Attending Physician: Bright Yoder MD History of Present Illness 28 year old male with history of T1DM, hypothyroidism, gastroparesis, and constipation admitted through the ED w/ abd pain, nausea/vomiting - GI asked to evaluate for gastroparesis. Pt was seen and evaluated, chart reviewed. Notes he was diagnosed with gastroparesis years ago, maybe as an early teenager. Related to his T1DM. Notes this has always been hard to control. He suggests he gets admitted about every other week for his nausea/vomiting and inability to tolerate oral intake. This is typically at [facility]. Notes that his gastroparesis symptoms have been hard to control. Notes he has had EGD w/ Botox in past without relief. Has not found an antiemetic regime that works for him. Does follow gastroparesis diet without relief. Suggests he has last about 20 lbs in the last months due to the severity of his symptoms. Recently was seen by [facility] and it was recommended he establish with a tertiary center. CTAP 2023: Distal esophageal wall thickening. May represent esophagitis. Bladder wall thickening of somewhat distended bladder. Correlate for cystitis. Minimal free fluid in the pelvis. Nonspecific although atypical in males. A1c 6.6 UTox 2023: negative Celiac panel 2023: pending Tbili 0.5 AST 14 ALT 12 ALKP 53 Lipase < 3 EGD: about 6 years ago, does not recall results Colonoscopy: never GES: about 6 years ago, does not recall results Allergies Allergy/AdvReac Type Severity Reaction Status Date / Time tramadol Allergy Intermediate Hives Verified 03/26/24 22:45 metoclopramide [From Reglan] AdvReac Unknown CAN'T Verified 03/26/24 22:45 REMEMBER Home Medications Medication Instructions Recorded Confirmed Type cyclobenzaprine 5 mg tablet 5 mg PO HS PRN MUSCLE SPASMS 04/30/19 03/26/24 History ergocalciferol (vitamin D2) 1,250 50,000 units PO WK 04/30/19 03/26/24 History mcg (50,000 unit) capsule ibuprofen 600 mg tablet 600 mg PO TID PRN fever or pain 04/30/19 03/26/24 History lancets (Microlet Lancet) #50 ea 04/30/19 03/18/24 History blood sugar diagnostic (Contour #100 ea 12/18/20 03/18/24 Rx Next Test Strips) blood-glucose meter,continuous #1 ea 12/18/20 03/18/24 Rx (Dexcom Custom Clothier) blood-glucose sensor (Dexcom G6 #3 ea 12/18/20 03/18/24 Rx Sensor device) blood-glucose transmitter (Dexcom #1 ea 12/18/20 03/18/24 Rx G6 Transmitter device) urine glucose-ketones test #50 ea 12/18/20 03/18/24 Rx (Keto-Diastix strips) lamotrigine 100 mg tablet 100 mg PO DAILY 03/18/24 03/26/24 History (Lamictal) levothyroxine 300 mcg tablet 300 mcg PO DAILY 03/18/24 03/26/24 History (Synthroid) linaclotide 145 mcg capsule 145 mcg PO DAILY #30 caps 03/18/24 03/26/24 Rx (Linzess) trazodone 50 mg tablet 50 mg PO DAILY 03/18/24 03/26/24 History glucagon HCl 1 mg/mL solution for 1 mg subcut DIRECTED PRN 03/26/24 03/26/24 History injection Hypoglycemia insulin aspart U-100 100 unit/mL 0 unit continuous subcutaneous 03/26/24 03/26/24 History subcutaneous solution (Novolog infusion CONTINOUS U-100 Insulin aspart) insulin glargine 100 unit/mL (3 25 unit subcut .COMPLEX PRN PUMP 03/26/24 03/26/24 History mL) subcutaneous pen (Basaglar FAILURE KwikPen U-100 Insulin) Patient History Social History Smoking Status: Current every day smoker Tobacco Type: E-cigarettes / Vaping Do You Dip or Chew Tobacco: No; Hx Alcohol Use: No Hx Substance Use: No Preferred Language: Surinamese Communication Ability: Effective Communication Ability Comment: pt is very fatigued at this time Product Evangelist Required: No Beliefs That Will Affect Care: None Current Living Situation: Other Current Living Situation Comment: with friend Other Information That Helps Us Care for You: No Feels Safe at Home: Yes Safety Concerns: Feels Safe At This Time Assistive Devices: Glasses and Other Assistive Devices Comment: Medtronic insulin pump, Dexcom continuous glucose monitor Review of Systems Review of Systems: All other findings negative except as noted in HPI. Physical Exam Constitutional: WD/WN, vitals as above Respiratory: normal respiratory effort Cardiovascular: Rate/Rhythm: regular rate and regular rhythm Gastrointestinal (Abdomen): Inspection/Auscultation: normal bowel sounds Percussion/Palpation: + abdomen tender and abdomen soft; no guarding and abdomen not rigid Skin: no rashes, warm and dry Results & Data Vital Signs (Past 12 Hours) Vital Signs Temp Pulse Resp BP BP Pulse Ox O2 Del Method 03/29/24 07:09 36.7 C 81 14 163/100 H 165/102 H 97 Room Air Laboratory Results 03/29/24 03/29/24 Range/Units 06:17 05:19 WBC 6.58 (4.8-10.8) K/ul RBC 3.34 L (4.70-6.10) M/uL Hgb 10.0 L (14.0-18.0) g/dl Hct 29.7 L (42.0-52.0) % MCV 88.9 (80.0-100.0) fL MCH 29.9 (25.0-34.0) pg MCHC 33.7 (32.0-36.0) g/dL RDW Std Deviation 38.5 (36.4-46.3) fL RDW Coeff of Getachew 12.0 (11.5-14.5) % Plt Count 248 (130-400) K/uL MPV 11.2 (9.4-12.4) fL Sodium 137 (136-145) mmol/L Potassium 4.0 (3.5-5.1) mmol/L Chloride 103 (98-107) mmol/L Carbon Dioxide 30 (21-32) mmol/L Anion Gap 4 (3-11) BUN 13 (6-23) mg/dl Creatinine 1.31 (0.6-1.4) mg/dl Est Cr Clr Drug Dosing 68.0 ml/min Est GFR ( Amer) 84.7 ml/min Est GFR (Non-Af Amer) 73.1 ml/min BUN/Creatinine Ratio 9.9 L (10-20) Glucose 71 (70-99(Fasting)) mg/dl POC Glucose 70 (70-99) mg/dl Calcium 9.0 (8.6-10.3) mg/dl PG Care Time/CCT Total # of Minutes Spent Total Time Spent with Patient: Total time spent is greater than 50% in coordination of care (as documented) at patient's floor/unit and/or counseling patient: Coding Level of Care Code None Diagnoses Abdominal pain R10.9
[2024-03-29] MEDS: KETOROLAC TROMETHAMINE 15 MG/ML VIAL IV ONE (13:02)
[2024-03-29] MEDS: MoRPHine SULFATE 2 MG/ML CARP IV STA (13:25)
[2024-03-29] MEDS: MoRPHine SULFATE 4 MG/ML 1 ML CARP\\VIAL IV STA (13:55)
--- NOTE | 2024-03-29 15:46 | XRay Report ---
[facility] CLINICAL HISTORY: Gastroparesis. Generalized abdominal pain. Vomiting. FINDINGS: An AP portable, supine abdominal radiograph is correlated with abdominal CT dated 4. Suture material projects over the right midabdomen. There is no bowel obstruction. Moderate fecal retention is seen throughout the colon. There is no evidence of intraperitoneal free air on this supi ne image. There are no abnormal abdominal calcifications. An indeterminate radiodensity projecting ov er the left abdomen may be external to the patient. The bony structures appear intact. IMPRESSION: Moderate constipation. Electronically signed by: Tera Lainez M.D. 03/29/2024 3:44 PM
[2024-03-29] MEDS: SOD PHOSPHATE/SOD BIPHOSPHATE ENEMA 132 ML BTL PR STA (15:53)
[2024-03-29] MEDS: hydrALAZINE HCL 20 MG/ML VIAL IV PRN (16:17)
[2024-03-29] MEDS: LOSARTAN POTASSIUM 25 MG TAB PO SCH (16:33)
--- NOTE | 2024-03-29 18:34 | Electrocardiogram Report ---
Test Reason : Blood Pressure : / mmHG Vent. Rate : 088 BPM Atrial Rate : 088 BPM P-R Int : 124 ms QRS Dur : 074 ms QT Int : 366 ms P-R-T Axes : 065 044 056 degrees QTc Int : 442 ms Normal sinus rhythm Minor Anterior ST elevation, most consistent with repolarization variant Borderline ECG No previous ECGs available Confirmed by Wojciech Ellsworth ([id number]) on 03/29/2024 6:34:17 PM Referred By: REFERRED SELF Confirmed By:Wojciech Ellsworth
[2024-03-29] MEDS: MoRPHine SULFATE 10 MG/ML CARP/VIAL IV STA (21:35)
[2024-03-30] MEDS: Continuous Glucose Monitor SCH ×2 (05:47→15:45)
[2024-03-30 06:19] LABS: Hematocrit (blood only) 29.4 % (42.0-52.0); Hemoglobin 10.1 g/dl (14.0-18.0); Mean Corpuscular Hemoglobin 29.9 pg (25.0-34.0); Mean Corpuscular Hgb Conc 34.4 g/dL (32.0-36.0); Mean Platelet Volume 10.6 fL (9.4-12.4); Platelet Count 245 K/uL (130-400); RDW Coefficient of Variation 11.8 % (11.5-14.5); RDW Standard Deviation 37.5 fL (36.4-46.3); Red Blood Count 3.38 M/uL (4.70-6.10); White Blood Count 7.43 K/ul (4.8-10.8)
[2024-03-30 06:22] LABS: Alanine Aminotransferase 8 U/L (7-52); Albumin Globulin Ratio 1.6 (0.9-2); Albumin Level 3.1 gm/dl (3.4-5.0); Alkaline Phosphatase 42 U/L (34-104); Anion Gap 4 (3-11); Aspartate Aminotransferase 9 U/L (13-39); BUN Creatinine Ratio 10.3 (10-20); Bilirubin,Total 0.3 mg/dl (0.2-1.0); Blood Urea Nitrogen 13 mg/dl (6-23); C Reactive Protein < 0.50 mg/dl (0-0.5); Calcium 8.6 mg/dl (8.6-10.3); Carbon Dioxide 30 mmol/L (21-32); Chloride 101 mmol/L (98-107); Creatinine Clr Calc Pharmacy 70.7 ml/min; Est GFR (African American) 88.7 ml/min; Est GFR (Non-African American) 76.6 ml/min; Globulin 1.9 gm/dl (2.5-4.0); Glucose 116 mg/dl (70-99(Fasting)); Magnesium 1.6 mg/dl (1.7-2.4); Potassium 3.8 mmol/L (3.5-5.1); Sodium 135 mmol/L (136-145)
--- NOTE | 2024-03-30 09:42 | Gastroenterology Progress Note ---
Date of Service March 30, 2024 Assessment & Plan (1) Abdominal pain: Plan: Upper endoscopy (2) Intractable nausea and vomiting: Plan: EGD Plan 28 year old male with history of T1DM, gastroparesis and others admitted w/ nausea/vomiting, CT imaging with esophagitis. NPO for EGD Constipation Continue Linzess May add Miralax 1-2 capfuls daily Esophagitis Agree w/ PPI 40 mg twice daily Agree w/ course of QID liquid Carafate for 14 days Gastroparesis Antiemetics Liquid diet for now, advance to gastroparesis diet as tolerated Can continue scheduled Zofran May use Phenergan suppository 12.5 mg daily PRN Prokinetic agents Reglan is listed as an allergy If antiemetics do not improve symptoms, consider short term oral eryt hromycin 250 mg TID before meals Tertiary referral Discussed making an appt with a tertiary center to discuss G-Poem vs gastric pacer We appreciate assistance in the management of any serological abnormality and corrections to include: hemoglobin >7, INR <2, platelets >50,000, potassium levels >3.5 but <5.3, and sodium levels within 5 points of the reference range prior to endoscopic evaluation. Admission and Anticipated Discharge Date Admission Date: March 27, 2024 Subjective Pt was seen and evaluated, chart reviewed. Notes narcotic analgesia has improved his symptoms. No further pain or vomiting since our evaluation last evening. Is NPO for EGD. Review of Systems Review of Systems: All other findings negative except as noted in HPI. Physical Exam Constitutional: WD/WN, vitals as above Respiratory: normal respiratory effort, lungs clear to auscultation Cardiovascular: RRR, no murmur, no edema Gastrointestinal (Abdomen): normal bowel sounds, soft, nontender, no hepatosplenomegaly Skin: no rashes, warm and dry Results & Data Results & Data Vital Signs (Past 12 Hours) Vital Signs Temp Pulse Pulse Resp BP Pulse Ox O2 Del Method 03/30/24 07:15 36.7 C 82 16 146/90 H 98 Room Air 03/30/24 03:46 74 133/85 Laboratory Results 03/30/24 03/30/24 03/29/24 Range/Units 05:41 05:16 05:19 WBC 7.43 6.58 (4.8-10.8) K/ul RBC 3.38 L 3.34 L (4.70-6.10) M/uL Hgb 10.1 L 10.0 L (14.0-18.0) g/dl Hct 29.4 L 29.7 L (42.0-52.0) % MCV 87.0 88.9 (80.0-100.0) fL MCH 29.9 29.9 (25.0-34.0) pg MCHC 34.4 33.7 (32.0-36.0) g/dL RDW Std Deviation 37.5 38.5 (36.4-46.3) fL RDW Coeff of Getachew 11.8 12.0 (11.5-14.5) % Plt Count 245 248 (130-400) K/uL MPV 10.6 11.2 (9.4-12.4) fL ESR < 1 (0-15) mm/hr Sodium 135 L (136-145) mmol/L Potassium 3.8 (3.5-5.1) mmol/L Chloride 101 (98-107) mmol/L Carbon Dioxide 30 (21-32) mmol/L Anion Gap 4 (3-11) BUN 13 (6-23) mg/dl Creatinine 1.26 (0.6-1.4) mg/dl Est Cr Clr Drug Dosing 70.7 ml/min Est GFR ( Amer) 88.7 ml/min Est GFR (Non-Af Amer) 76.6 ml/min BUN/Creatinine Ratio 10.3 (10-20) Glucose 116 H (70-99(Fasting)) mg/dl POC Glucose 135 H (70-99) mg/dl Calcium 8.6 (8.6-10.3) mg/dl Magnesium 1.6 L (1.7-2.4) mg/dl Total Bilirubin 0.3 (0.2-1.0) mg/dl AST 9 L (13-39) U/L ALT 8 (7-52) U/L Alkaline Phosphatase 42 (34-104) U/L C-Reactive Protein < 0.50 (0-0.5) mg/dl Total Protein 5.0 L (6.0-8.3) gm/dl Albumin 3.1 L (3.4-5.0) gm/dl Globulin 1.9 L (2.5-4.0) gm/dl Albumin/Globulin Ratio 1.6 (0.9-2) PG Care Time/CCT Total # of Minutes Spent Total Time Spent with Patient: Total time spent is greater than 50% in coordination of care (as documented) at patient's floor/unit and/or counseling patient: Coding Level of Care Code None Diagnoses Generalized abdominal pain R10.84 Abdominal location: generalized Intractable nausea and vomiting R11.2 (1) Abdominal pain Abdominal location: generalized Qualified Code(s): R10.84 - Generalized abdominal pain
--- NOTE | 2024-03-30 12:40 | Anesthesiology Consultation ---
Date of Service March 30, 2024 Assessment & Plan Chart Review Chart Review: Acceptable Risk for Surgery and Patient NOT seen in Pre Admission Testing Consults Requested none ASA ASA3 Proposed Anesthesia Anesthesia Type: MAC History Surgery Operation Date: 03/30/24 16:55 Proposed Procedures p Esophagogastroduodenoscopy Jodi Zapata MD Height/Weight Height: 5 ft 5 in Weight: 57.8 kg Allergies Allergy/AdvReac Type Severity Reaction Status Date / Time tramadol Allergy Intermediate Hives Verified 03/26/24 22:45 metoclopramide [From Reglan] AdvReac Unknown CAN'T Verified 03/26/24 22:45 REMEMBER Medications Home Medications Medication Instructions Recorded Confirmed Last Taken cyclobenzaprine 5 mg tablet 5 mg PO HS PRN MUSCLE SPASMS 04/30/19 03/26/24 Unknown ergocalciferol (vitamin D2) 1,250 50,000 units PO WK 04/30/19 03/26/24 Unknown mcg (50,000 unit) capsule ibuprofen 600 mg tablet 600 mg PO TID PRN fever or pain 04/30/19 03/26/24 Unknown lancets (Microlet Lancet) #50 ea 04/30/19 03/18/24 Unknown blood sugar diagnostic (Contour #100 ea 12/18/20 03/18/24 Unknown Next Test Strips) blood-glucose meter,continuous #1 ea 12/18/20 03/18/24 Unknown (Dexcom Boom Conveyor Operator) blood-glucose sensor (Dexcom G6 #3 ea 12/18/20 03/18/24 Unknown Sensor device) blood-glucose transmitter (Dexcom #1 ea 12/18/20 03/18/24 Unknown G6 Transmitter device) urine glucose-ketones test #50 ea 12/18/20 03/18/24 Unknown (Keto-Diastix strips) lamotrigine 100 mg tablet 100 mg PO DAILY 03/18/24 03/26/24 03/25/24 (Lamictal) levothyroxine 300 mcg tablet 300 mcg PO DAILY 03/18/24 03/26/24 03/25/24 (Synthroid) linaclotide 145 mcg capsule 145 mcg PO DAILY #30 caps 03/18/24 03/26/24 03/25/24 (Linzess) trazodone 50 mg tablet 50 mg PO DAILY 0603/26/24 03/25/24 glucagon HCl 1 mg/mL solution for 1 mg subcut DIRECTED PRN 03/26/24 03/26/24 Unknown injection Hypoglycemia insulin aspart U-100 100 unit/mL 0 unit continuous subcutaneous 03/26/24 03/26/24 Unknown subcutaneous solution (Novolog infusion CONTINOUS U-100 Insulin aspart) insulin glargine 100 unit/mL (3 25 unit subcut .COMPLEX PRN PUMP 03/26/24 03/26/24 Unknown mL) subcutaneous pen (Basaglar FAILURE KwikPen U-100 Insulin) Active Medications Generic Name Dose Route Start Last Admin Trade Name Freq PRN Reason Stop Dose Admin Acetaminophen 650 mg 03/27/24 03:45 03/29/24 07:41 Acetaminophen 325 Mg Tab PO 04/26/24 03:44 650 mg Q4H PRN Administration pain/fever Bisacodyl 10 mg 03/27/24 12:43 03/28/24 10:54 Bisacodyl 10 Mg Supp CA 04/26/24 12:42 10 mg DAILY PRN Administration Constipation Hydralazine HCl 10 mg 03/29/24 16:10 03/29/24 16:17 Hydralazine Hcl 20 Mg/Ml Vial IV 04/28/24 16:09 10 mg Q8H PRN Administration SBP >185, DBP >95 Promethazine HCl 6.25 mg/ 50.25 mls @ 201 mls/hr 03/27/24 03:45 03/29/24 12:49 Sodium Chloride IV 04/26/24 03:44 Infused Q6H PRN Infusion Nausea And Vomiting Lactated Ringer's 1,000 mls @ 125 mls/hr 03/27/24 03:45 03/30/24 11:47 Lr IV 04/26/24 03:44 125 mls/hr .Q8H DIPTI Administration Pantoprazole Sodium 40 mg/ 10 mls @ 5 mls/min 03/27/24 09:00 03/30/24 09:03 Syringe IV 04/26/24 08:59 5 mls/min BID DIPTI Administration Lamotrigine 100 mg 03/27/24 09:00 03/29/24 07:42 Lamotrigine 100 Mg Tab PO 04/26/24 08:59 100 mg DAILY DIPTI Administration Protocol Levothyroxine Sodium 300 mcg 03/27/24 06:30 03/28/24 06:11 Levothyroxine Sodium 150 Mcg Tablet PO 04/26/24 06:29 300 mcg DAILYBB DIPTI Administration Linaclotide 145 mcg 03/27/24 09:00 03/29/24 07:42 Linaclotide 145 Mcg Capsule PO 04/26/24 08:59 145 mcg DAILY DIPTI Administration Losartan Potassium 25 mg 03/29/24 16:00 03/29/24 16:33 Losartan Potassium 25 Mg Tab PO 04/28/24 15:59 Not Given QAM DIPTI Magnesium Hydroxide 30 ml 03/27/24 12:43 03/28/24 11:45 Magnesium Hydroxide Susp 30 Ml Udc PO 04/26/24 12:42 30 ml Q6H PRN Administration Constipation Melatonin 3 mg 03/27/24 03:45 03/28/24 21:13 Melatonin 3 Mg Tab PO 04/26/24 03:44 3 mg HS PRN Administration Insomnia Miscellaneous 0 each 03/30/24 06:00 03/30/24 11:29 Continuous Glucose Monitor N/A 04/29/24 05:59 Not Given Q6 DIPTI Ondansetron HCl 4 mg 03/28/24 15:15 03/30/24 11:48 Ondansetron Inj 2 Mg/Ml 2 Ml Vial IV 04/27/24 15:14 4 mg Q4H DIPTI Administration Polyethylene Glycol 17 gm 03/27/24 09:00 03/30/24 10:55 Polyethylene (Miralax) 17 Gm Pack PO 04/26/24 08:59 Not Given BID DIPTI Sucralfate 1 gm 03/27/24 09:00 03/30/24 11:48 Sucralfate 1 Gm/10 Ml Udc PO 04/26/24 08:59 Not Given QID DIPTI Trazodone HCl 50 mg 03/27/24 21:00 03/29/24 21:35 Trazodone Hcl 50 Mg Tab PO 04/26/24 20:59 Not Given HS DIPTI Past Medical History IDDM w/ pump Anemia Gastroparesis hypothyroidism N/V + tobacco smoker Exercise / Class Metabolic Activity II 4-5 Yardwork/Stairs/Walk up hill Past Anesthesia History No Hx of Anesthesia Complications and No Family Hx of Anesthesia Complications History of PONV No Hx of PONV and No Hx of Motion Sickness Social History Smoking Status: Current every day smoker Do You Dip or Chew Tobacco: No Hx Alcohol Use: No Hx Substance Use: No substance use type: does not use Physical Exam Vital Signs Last Vital Signs Temp 36.7 C 03/30/24 07:15 Pulse 82 03/30/24 07:15 Resp 16 03/30/24 07:15 BP 146/90 H 03/30/24 07:15 Pulse Ox 98 03/30/24 07:15 O2 Del Method Room Air 03/30/24 07:15 Testing Laboratory Results 03/30/24 05:16 03/30/24 05:16 Hemoglobin A1c 6.6 % (4.5-5.6) H 03/27/24 09:08 Urine Color Yellow 03/26/24 19:46 Urine Appearance Clear (Clear) 03/26/24 19:46 Urine pH 7.0 (4.5-7.5) 03/26/24 19:46 Ur Specific [place] 1.016 (1.000-1.030) 03/26/24 19:46 Urine Protein Negative (Negative) 03/26/24 19:46 Urine Glucose (UA) Negative (Negative) 03/26/24 19:46 Urine Ketones 1+ (Negative) H 03/26/24 19:46 Urine Nitrite Negative (Negative) 03/26/24 19:46 Ur Leukocyte Esterase Trace (Negative) H 03/26/24 19:46 Urine WBC (Auto) 0-5 /hpf (0-5) 03/26/24 19:46 Urine RBC (Auto) 0-2 /hpf (0-2) 03/26/24 19:46 U Hyaline Cast (Auto) 0-2 /lpf (0-2) 03/26/24 19:46 U Epithel Cells (Auto) 0-2 /hpf (0-2) 03/26/24 19:46 Urine Bacteria (Auto) None Seen (None Seen) 03/26/24 19:46 03/30/24 05:41 POC Glucose 135 H Electrocardiogram Date: 03/29/24 Findings: + NSR @ (@ 88)
[2024-03-30] MEDS ORDERED: ATROPINE SULFATE 0.1 MG/ML 10ML SYR IV PRN (12:49)
[2024-03-30] MEDS ORDERED: ePHEDrine sulfate 50 MG/ML AMP IV PRN (12:49)
[2024-03-30 13:02] LABS: IgA Serum 142 mg/dL (47-310); Tis Trans IgA <1.0 U/mL
--- NOTE | 2024-03-30 13:36 | GI REPORT ---
[facility] Patient: ADRIANNE BUCHANAN : 1995 Sex at : Male Age: 28 Years Procedure: Upper GI endoscopy Date: 03/30/2024 Attending Physician: Hermilo Zapata MD Referring MD: Referred Self Indications: - Persistent vomiting with nausea Medications: - Monitored Anesthesia Care Complications: - No immediate complications. Estimated Blood Loss: - Estimated blood loss: none. Procedure: - The egd scope was introduced through the mouth and advanced to the second part of the duodenum. - The upper GI endoscopy was accomplished with ease. - The patient tolerated the procedure well. Findings: - The Z-line was irregular and was found 36 cm from the incisors. - LA Grade C (one or more mucosal breaks continuous between tops of 2 or more mucosal folds, less than 75% circumference) esophagitis was found in the middle and lower thirds of the esophagus. Esophagitis likely related to persistent vomiting. - Localized severely erythematous mucosa without bleeding was found in the gastric body. This was biopsied with a cold forceps for histology. 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 Otherwise the stomach was normal. - The examined duodenum was normal. Impression: - Z-line irregular, 36 cm from the incisors. - LA Grade C reflux esophagitis. - Esophagitis likely related to persistent vomiting. - Erythematous mucosa in the gastric body. Biopsied. 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 - Otherwise the stomach was normal. - Normal examined duodenum. Recommendation: - Observe patient's clinical course. Procedure Code(s): - 82233, Esophagogastroduodenoscopy, flexible, transoral; with biopsy, single or multiple Diagnosis Code(s): - R11.2, Nausea with vomiting, unspecified - K22.89, Other specified disease of esophagus - K21.00, Gastro-esophageal reflux disease with esophagitis, without bleeding - K31.89, Other diseases of stomach and duodenum CPT(R) - 2023 copyright [employer]. All Rights Reserved. The CPT codes, CCI edits and ICD codes generated are intended as suggestions and were generated based on input data. These codes are preliminary and upon dental assistant instructor review may be revised to meet current compliance and payer requirements. The provider is responsible for the final determination of appropriate codes, and modifiers. Hermilo Zapata M.D. This document has been electronically signed. Note Initiated:03/30/2024 Note Completed:03/30/2024 1:36 PM \\[id number]
--- NOTE | 2024-03-30 13:38 | Communication Note ---
Date of Service: March 30, 2024 EGD showed severe erosive and ulcerative esophagitis likely related to persistent vomiting. In the stomach there was a focal area of erythema in the gastric body which is likely related to prolapse gastropathy and GERD secondary to vomiting. No other abnormalities were seen. Recommendations: Continue proton pump inhibitor, okay to change to p.o. if tolerates. Advance diet, gastroparesis diet. Omeprazole 40 mg once a day
--- NOTE | 2024-03-30 13:43 | Anesthesiology Progress Note ---
Date of Service March 30, 2024 Anesthesia Post Procedure Vital Signs Vital Signs: Temp Pulse Pulse Pulse Resp BP BP 03/30/24 12:34 36.8 C 75 18 185/113 H 03/30/24 07:15 36.7 C 82 16 146/90 H 03/30/24 03:46 74 133/85 03/29/24 20:14 36.8 C 89 18 112/71 03/29/24 16:59 166/101 H 173/112 H 03/29/24 16:03 196/105 H 03/29/24 15:44 36.7 C 96 H 16 186/104 H 192/108 H Pulse Ox O2 Del Method 03/30/24 12:34 100 Room Air 03/30/24 07:15 98 Room Air 03/30/24 03:46 03/29/24 20:14 98 Room Air 03/29/24 16:59 03/29/24 16:03 03/29/24 15:44 100 Room Air Pain Intensity Abdomen: Pain Intensity: 5 Transfer of Care Handoff Completed per policy Notes Mental Status: alert / awake / arousable Patient Amnestic to Procedure: Yes Nausea / Vomiting: adequately controlled Pain: adequately controlled Airway Patency, RR, SpO2: stable & adequate BP & HR: stable & adequate Hydration State: stable & adequate Anesthetic Complications: no major complications apparent
[2024-03-30] MEDS: hydrALAZINE HCL 20 MG/ML VIAL ONE (14:06)
[2024-03-30] MEDS: LABETALOL HCL IV 5 MG/ML 20ML IV STA (14:25)
[2024-03-30] MEDS: hydrALAZINE HCL 20 MG/ML VIAL IV STA (15:04)
[2024-03-30] MEDS: SODIUM CHLORIDE 0.9% 500 ML IV SCH (15:04)
[2024-03-30] MEDS: LABETALOL HCL IV 5 MG/ML 20ML IV ONE (15:04)
[2024-03-30] MEDS: PROPOFOL IV EMULSION 10 MG/ML 20 ML VIAL IV ONE (15:04)
[2024-03-30] MEDS: LIDOCAINE 2% 2 ML VIAL/AMP(20MG/ML) INFIL ONE ×2 (15:04)
--- NOTE | 2024-03-30 15:21 | Ultrasound Report ---
DOPPLER ULTRASOUND OF THE MESENTERIC VASCULATURE CLINICAL HISTORY: Intractable abdominal pain. Vomiting. FINDINGS: Real-time, grayscale and color Doppler sonography of the mesenteric vasculature is performe d. The abdominal aorta is patent with velocities measure up to 112 cm per second. The celiac trunk an d superior mesenteric artery are widely patent. Velocities in the celiac trunk measure up to 156 cm/s and velocities in the superior mesenteric artery measure up to 272 cm/s. This is almost certainly ar tifactual, as the vessel was shown to be widely patent by CT. IMPRESSION: 1. The superior mesenteric and celiac arteries are patent. 2. Elevated velocities within the superior mesenteric artery are almost certainly artifactual. The ve ssel was shown to be widely patent on CT. Dictated: 03/30/2024 9:07 AM Transcribed: 03/30/2024 9:17 AM Fernandez [id number] [email or web address] Electronically signed by: Tera Lainez M.D. 03/30/2024 3:20 PM
[2024-03-30] MEDS ORDERED: Nursing to Pharmacy Communication SCH (15:45)
--- NOTE | 2024-03-30 18:40 | Hospitalist Progress Note ---
Date of Service March 30, 2024 Assessment & Plan (1) Nausea & vomiting: Plan: Rony is a 28M w/ PMH of T1DM, hypothyroidism, gastroparesis, and constipation who presented for evaluation of nausea and vomiting. - Patient with known T1DM - GI record review notes that patient often has nausea/emesis flares in setting of constipation - Admissions q2-3 weeks for nausea/emesis in setting of gastroparesis over last 3-4 months. Typically presents to [facility] - CTA on admission with evidence of esophagitis and increased stool burden > Continue Pantoprazole, start Carafate for Esophagitis - CXR without infectious process - Urine porphyria pending - Celiac titer pending - Patient was tolerating regular diet without increased abdominal pain or vomiting, however, in afternoon 03/29 he began vomiting. - Patient continued to have multiple episodes of emesis throughout the afternoon and evening. Reported 10/10 abdominal pain for most of afternoon. > Antiemetics administered with no relief. Pain meds administered with minimal relief, reported 8/10 pain. > KUB revealed moderate constipation, but no obstruction. > Fleets enema given, however nursing reported it was very difficult and painful for the patient. - GI consulted. Appreciate recommendations > If antiemetics do not improve symptoms, consider short term oral erythromycin 250 mg TID before meals > Discussed making an appt with a tertiary center to discuss G-Poem vs gastric pacer - EGD 03/30/2024 showed severe erosive and ulcerative esophagitis likely related to persistent vomiting. In the stomach there is a focal area of erythema in the gastric body which is likely related to prolapse gastropathy and GERD secondary to vomiting. No other abnormality seen. > Continue PPI. Omeprazole 40 mg daily. Advance diet as tolerated. Gastroparesis diet. - Post-EGD, patient became hypertensive requiring IV hydralazine and IV labetalol. He has remained normotensive since then. -Mesenteric Doppler 03/30 revealed patent superior mesenteric and celiac arteries - Started short term oral erythromycin 250 mg TID before meals - Continue losartan 25 mg p.o. every morning for hypertension. Recommend continuing this on discharge for renal protection in setting of T1DM - Ordered hydralazine as needed for hypertension with parameters - Pain control remains difficult as narcotics will further contribute to patient's constipation. - Tolerated clear liquids for lunch 03/30, advanced to full liquids for dinner. If well-tolerated, can advance to gastroparesis diet for breakfast 03/31 (2) Hypothyroidism, postablative: Plan: TSH 0.042 - possible contributing to his symptoms, patient reports that he has not had dose adjustment recently, hx of elevated TSH difficult to control - hold Synthroid, recommend dose reduction at discharge - Discuss with endocrine on when to resume Synthroid and what dosage to resume it at prior to discharge Plan Consulted registered dietitian Reviewed EGD report Advanced diet to clear liquids, then full liquids Chronic Conditions - Mental Health - continue Lamotrigine and Trazodone - T1DM - A1c 6.6, continue patient CGM and pump CODE STATUS: Full code Admission and Anticipated Discharge Date Admission Date: March 27, 2024 Subjective Patient seen and evaluated at bedside prior to EGD. He reports no further severe abdominal pain or vomiting since yesterday evening. He reports that his pain is tolerable, currently 5/10. After EGD, patient became hypertensive requiring IV hydralazine and IV labetalol. He has remained normotensive since. Tolerated clear liquids for lunch. Will trial full liquids for dinner. Physical Exam Physical Exam: General: Patient in acute distress, nondiaphoretic, well-developed, thin. Skin: The skin was without rashes, erythema, edema, or bruising. Cardiac: Regular rhythm, tachycardic in 90s without murmurs gallops or rubs. Pulm: Clear to auscultation bilaterally without wheezes, rales or rhonchi. No retractions or accessory muscle use. Abdominal: Soft, nondistended. Moderate diffuse abdominal tenderness, no guarding/rebound. Hypoactive bowel sounds. Neuro: A&O x3. No focal neurological deficits. Flat affect. Results & Data Results & Data Vital Signs (Past 12 Hours) Vital Signs Temp Pulse Pulse Pulse Resp BP BP 03/30/24 17:07 90 18 127/75 03/30/24 15:50 88 18 130/75 03/30/24 14:58 36.7 C 81 16 131/82 03/30/24 14:46 84 16 135/83 03/30/24 14:34 85 16 124/74 03/30/24 14:25 81 151/97 H 03/30/24 14:04 78 16 180/114 H 03/30/24 13:49 78 16 162/106 H 03/30/24 13:34 77 16 03/30/24 12:34 36.8 C 75 18 185/113 H 03/30/24 07:15 36.7 C 82 16 146/90 H BP Pulse Ox O2 Del Method 03/30/24 17:07 99 Room Air 03/30/24 15:50 100 Room Air 03/30/24 14:58 100 Room Air 03/30/24 14:46 98 Room Air 03/30/24 14:34 98 Room Air 03/30/24 14:25 03/30/24 14:04 100 Room Air 03/30/24 13:49 192/116 H 98 Room Air 03/30/24 13:34 161/94 H 100 Room Air 03/30/24 12:34 100 Room Air 03/30/24 07:15 98 Room Air Laboratory Results Reviewed CBC Reviewed CMP Diagnostic Findings Reviewed mesenteric US 03/30/24 FINDINGS: Real-time, grayscale and color Doppler sonography of the mesenteric vasculature is performed. The abdominal aorta is patent with velocities measure up to 112 cm per second. The celiac trunk and superior mesenteric artery are widely patent. Velocities in the celiac trunk measure up to 156 cm/s and velocities in the superior mesenteric artery measure up to 272 cm/s. This is almost certainly artifactual, as the vessel was shown to be widely patent by CT. IMPRESSION: 1. The superior mesenteric and celiac arteries are patent. 2. Elevated velocities within the superior mesenteric artery are almost certainly artifactual. The vessel was shown to be widely patent on CT. Reviewed EGD 03/30/2024 Findings: 1. The Z-line was irregular and was found 36 cm from the incisors. 2. LA grade C (1 or more mucosal breaks continuous between tops of 2 or more mucosal folds, less than 75% circumference) esophagitis was found in the middle and lower thirds of the esophagus. Esophagitis likely related to persistent vomiting. 3. Localized severely erythematous mucosa without bleeding was found in the gastric body. This was biopsied with cold forceps for histology. 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 Otherwise the stomach was normal. 4. The examined duodenum was normal. Impression: 1. Z-line irregular, 36 cm from the incisors. 2. LA grade C reflux esophagitis. 3. Esophagitis likely related to persistent vomiting. 4. Erythematous mucosa in the gastric body. Biopsied. 5. 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 6. Otherwise the stomach was normal. 7. Normal examined duodenum. PG Care Time/CCT Total # of Minutes Spent Total Time Spent with Patient: Total time spent is greater than 50% in coordination of care (as documented) at patient's floor/unit and/or counseling patient: Coding Level of Care Code 76180 SUB INP/OBS CARE 3/50MIN Diagnoses Nausea & vomiting R11.2 Hypothyroidism, postablative E89.0
[2024-03-30] MEDS: MAGNESIUM SULFATE / D5W 1 GM/100 ML BAG IV ONE (18:49)
[2024-03-30] MEDS: ERYTHROMYCIN DELAYED RELEASE 250 MG CAP PO SCH (21:57)
[2024-03-31 08:29] LABS: Hematocrit (blood only) 30.1 % (42.0-52.0); Hemoglobin 10.2 g/dl (14.0-18.0); Mean Corpuscular Hemoglobin 29.7 pg (25.0-34.0); Mean Corpuscular Hgb Conc 33.9 g/dL (32.0-36.0); Mean Corpuscular Volume 87.8 fL (80.0-100.0); Mean Platelet Volume 10.4 fL (9.4-12.4); Platelet Count 241 K/uL (130-400); RDW Standard Deviation 39.1 fL (36.4-46.3); Red Blood Count 3.43 M/uL (4.70-6.10); White Blood Count 6.58 K/ul (4.8-10.8)
[2024-03-31 08:42] LABS: Albumin Globulin Ratio 1.7 (0.9-2); Albumin Level 3.6 gm/dl (3.4-5.0); BUN Creatinine Ratio 7.8 (10-20); Bilirubin,Total 0.3 mg/dl (0.2-1.0); Calcium 8.8 mg/dl (8.6-10.3); Creatinine Clr Calc Pharmacy 69.6 ml/min; Est GFR (African American) 87.1 ml/min; Est GFR (Non-African American) 75.1 ml/min; Globulin 2.1 gm/dl (2.5-4.0); Potassium 3.9 mmol/L (3.5-5.1); Total Protein 5.7 gm/dl (6.0-8.3)
[2024-03-31 10:11] LABS: Magnesium 1.7 mg/dl (1.7-2.4)
[2024-03-31] MEDS: POLYETHYLENE (MIRALAX) 17 GM PACK PO PRN (12:28)
--- NOTE | 2024-03-31 12:40 | Hospitalist Progress Note ---
Date of Service March 31, 2024 Assessment & Plan (1) Nausea & vomiting: Plan: Rony is a 28M w/ PMH of T1DM, hypothyroidism, gastroparesis, and constipation who presented for evaluation of nausea and vomiting. - Patient with known T1DM - GI record review notes that patient often has nausea/emesis flares in setting of constipation - Admissions q2-3 weeks for nausea/emesis in setting of gastroparesis over last 3-4 months. Typically presents to [facility] - CTA on admission with evidence of esophagitis and increased stool burden > Continue Pantoprazole, start Carafate for Esophagitis - CXR without infectious process - Urine porphyria pending - Celiac titer pending - Patient was tolerating regular diet without increased abdominal pain or vomiting, however, in afternoon 03/29 he began vomiting. - Patient continued to have multiple episodes of emesis throughout the afternoon and evening. Reported 10/10 abdominal pain for most of afternoon. > Antiemetics administered with no relief. Pain meds administered with minimal relief, reported 8/10 pain. > KUB revealed moderate constipation, but no obstruction. > Fleets enema given, however nursing reported it was very difficult and painful for the patient. - GI consulted. Appreciate recommendations > If antiemetics do not improve symptoms, consider short term oral erythromycin 250 mg TID before meals > Discussed making an appt with a tertiary center to discuss G-Poem vs gastric pacer - EGD 03/30/2024 showed severe erosive and ulcerative esophagitis likely related to persistent vomiting. In the stomach there is a focal area of erythema in the gastric body which is likely related to prolapse gastropathy and GERD secondary to vomiting. No other abnormality seen. > Continue PPI. Omeprazole 40 mg daily. Advance diet as tolerated. Gastroparesis diet. - Post-EGD, patient became hypertensive requiring IV hydralazine and IV labetalol. He has remained normotensive since then. -Mesenteric Doppler 03/30 revealed patent superior mesenteric and celiac arteries - Started short term oral erythromycin 250 mg TID before meals - Continue losartan 25 mg p.o. every morning for hypertension. Recommend continuing this on discharge for renal protection in setting of T1DM - Ordered hydralazine as needed for hypertension with parameters - Pain control remains difficult as narcotics will further contribute to patient's constipation. - Tolerated clear liquids for lunch 03/30, advanced to full liquids for dinner. If well-tolerated, can advance to gastroparesis diet for breakfast 03/31 (2) Hypothyroidism, postablative: Plan: TSH 0.042 - possible contributing to his symptoms, patient reports that he has not had dose adjustment recently, hx of elevated TSH difficult to control - hold Synthroid, recommend dose reduction at discharge - Discuss with endocrine on when to resume Synthroid and what dosage to resume it at prior to discharge Plan Educated patient on losartan and erythromycin Advanced diet to T1DM gastroparesis diet Chronic Conditions - Mental Health - continue Lamotrigine and Trazodone - T1DM - A1c 6.6, continue patient CGM and pump CODE STATUS: Full code Admission and Anticipated Discharge Date Admission Date: March 27, 2024 Subjective Patient seen and evaluated at bedside chair while eating lunch. He appears significantly improved today. He reports that his abdominal pain is tolerable, denies nausea/vomiting. He reports that he had a small liquid bowel movement yesterday. We discussed that a registered dietitian would be seeing him today for recommendations given his recent weight loss. Discussed further monitoring patient's tolerance to p.o. intake and continued bowel regimen today, with possible discharge tomorrow if patient remains stable without severe pain or vomiting. Patient is agreeable to this. Physical Exam Physical Exam: General: Patient in acute distress, nondiaphoretic, well-developed, thin. Skin: The skin was without rashes, erythema, edema, or bruising. Cardiac: Regular rhythm, tachycardic in 90s without murmurs gallops or rubs. Pulm: Clear to auscultation bilaterally without wheezes, rales or rhonchi. No retractions or accessory muscle use. Abdominal: Soft, nondistended. Mild diffuse abdominal tenderness, no guarding/rebound. Hypoactive bowel sounds. Neuro: A&O x3. No focal neurological deficits. Flat affect. Results & Data Results & Data Vital Signs (Past 12 Hours) Vital Signs Temp Pulse Resp BP Pulse Ox O2 Del Method 03/31/24 07:03 37 C 82 16 158/103 H 99 Room Air PG Care Time/CCT Total # of Minutes Spent Total Time Spent with Patient: Total time spent is greater than 50% in coordination of care (as documented) at patient's floor/unit and/or counseling patient: Coding Diagnoses Nausea & vomiting R11.2 Hypothyroidism, postablative E89.0
[2024-03-31] MEDS: MAGNESIUM CITRATE 296 ML/BTL PO STA (15:25)
--- NOTE | 2024-03-31 20:57 | Discharge Summary ---
Discharge Summary Date of Service March 31, 2024 Principal Dx & Hospital Course #1 = Principal Diagnosis (1) Nausea & vomiting: Rony is a 28M w/ PMH of T1DM, hypothyroidism, gastroparesis, and constipation who presented for evaluation of nausea and vomiting. - Patient with known T1DM - GI record review notes that patient often has nausea/emesis flares in setting of constipation - Admissions q2-3 weeks for nausea/emesis in setting of gastroparesis over last 3-4 months. Typically presents to [facility] - CTA on admission with evidence of esophagitis and increased stool burden > Continue Pantoprazole, start Carafate for Esophagitis - CXR without infectious process - Urine porphyria pending - Celiac titer pending - Referrals sent to tertiary center to discuss G-Poem vs gastric pacer - Multiple episodes of emesis throughout the afternoon and evening 03/29. Reported 10/10 abdominal pain for most of afternoon. > KUB revealed moderate constipation, but no obstruction. > Fleets enema given, however nursing reported it was very difficult and painful for the patient. - EGD 03/30/2024 showed severe erosive and ulcerative esophagitis likely related to persistent vomiting. In the stomach there is a focal area of erythema in the gastric body which is likely related to prolapse gastropathy and GERD secondary to vomiting. No other abnormality seen. Biopsy pending. - Post-EGD, patient became hypertensive requiring IV hydralazine and IV labetalol. He has remained normotensive since then. - Mesenteric Doppler 03/30 revealed patent superior mesenteric and celiac arter ies. - Patient tolerated T1DM gastroparesis diet 03/31. Did have bowel movement after more aggressive bowel regimen. - Patient requested to be discharged as he got an appointment with a GI specialist in [place] scheduled for 04/01 at 0800. -- Discharged on short-term oral erythromycin 250 mg TID before meals, losartan 25 mg p.o. every morning for hypertension and renal protection, PPI and Carafate for esophagitis (2) Hypothyroidism, postablative: TSH 0.042 - possible contributing to his symptoms, patient reports that he has not had dose adjustment recently, hx of elevated TSH difficult to control - hold Synthroid, recommend dose reduction after discharge - Follow-up with endocrine on when to resume Synthroid and at what dosage to resume it Plan Chronic Conditions - Mental Health - continue Lamotrigine and Trazodone - T1DM - A1c 6.6, continue patient CGM and pump CODE STATUS: Full code Notes For Next Care Provider Patient with complicated hospitalization in setting of type I diabetic with gastroparesis, intractable vomiting, and severe abdominal pain. He did improve over his hospitalization, tolerating T1 DM gastroparesis diet on 03/31. He requested to be discharged as he was able to get appointment with EYAD lopez in [place] on 04/01 at 8 AM. Follow recommendations from this appointment moving forward. Medication Changes From Visit Started losartan, erythromycin, Protonix, Carafate Admission HPI Per Admitting Provider Rony is a 28M w/ PMH of T1DM, hypothyroidism, gastroparesis, and constipation who presents for evaluation of nausea and vomiting. Patient sleeping upon arrival and unwilling to awaken to provide history. Girlfriend at bedside, noting patient presenting for nausea and vomiting and that this has been happening frequently over the last 3-4 months. She notes no changes in his home T1DM management, but states that he remains constipated despite Linzess and has not been using Miralax. Patient continues to use CGM and pump (which is currently full). He has a longstanding history of gastroparesis with associated nausea and emesis. Prior GI notes indicating that emesis episodes often correlate with constipation. No further HPI from patient. Admission Exam Per Admitting Provider Gen: Asleep, arousable, unwilling to converse HEENT: Supple, no LAD, dry mucous membranes Resp:Non-labored, no wheezing/rhonchi/rales, CTAB CV:RRR, normal S1/S2, no M/R/G Abd: Soft, non-distended, TTP throughout, no rebound or guarding, normoactive bowels, no masses Extr: 2+ dp bilaterally, no edema Skin: No rashes lesions or erythema Discharge Exam General: Patient in acute distress, nondiaphoretic, well-developed, thin. Skin: The skin was without rashes, erythema, edema, or bruising. Cardiac: Regular rate and rhythm without murmurs gallops or rubs. Pulm: Clear to auscultation bilaterally without wheezes, rales or rhonchi. No retractions or accessory muscle use. Abdominal: Soft, nondistended. Mild diffuse abdominal tenderness, no guarding/rebound. Hypoactive bowel sounds. Neuro: A&O x3. No focal neurological deficits. Flat affect. Updated Medication List Medication Instructions Recorded Confirmed Type cyclobenzaprine 5 mg tablet 5 mg PO HS PRN MUSCLE SPASMS 04/30/19 03/26/24 History ergocalciferol (vitamin D2) 1,250 50,000 units PO WK 04/30/19 03/26/24 History mcg (50,000 unit) capsule lancets (Microlet Lancet) #50 ea 04/30/19 03/18/24 History blood sugar diagnostic (Contour #100 ea 12/18/20 03/18/24 Rx Next Test Strips) blood-glucose meter,continuous #1 ea 12/18/20 03/18/24 Rx (Dexcom Taxi Driver) blood-glucose sensor (Dexcom G6 #3 ea 12/18/20 03/18/24 Rx Sensor device) blood-glucose transmitter (Dexcom #1 ea 12/18/20 03/18/24 Rx G6 Transmitter device) urine glucose-ketones test #50 ea 12/18/20 03/18/24 Rx (Keto-Diastix strips) lamotrigine 100 mg tablet 100 mg PO DAILY 03/18/24 03/26/24 History (Lamictal) levothyroxine 300 mcg tablet 300 mcg PO DAILY 03/18/24 03/26/24 History (Synthroid) linaclotide 145 mcg capsule 145 mcg PO DAILY #30 caps 03/18/24 03/26/24 Rx (Linzess) trazodone 50 mg tablet 50 mg PO DAILY 03/18/24 03/26/24 History glucagon HCl 1 mg/mL solution for 1 mg subcut DIRECTED PRN 03/26/24 03/26/24 History injection Hypoglycemia insulin aspart U-100 100 unit/mL 0 unit continuous subcutaneous 03/26/24 03/26/24 History subcutaneous solution (Novolog infusion CONTINOUS U-100 Insulin aspart) insulin glargine 100 unit/mL (3 25 unit subcut .COMPLEX PRN PUMP 03/26/24 03/26/24 History mL) subcutaneous pen (Basaglar FAILURE KwikPen U-100 Insulin) Erythromycin Delayed Rel [Eryc 250 mg PO TID #21 doses 03/31/24 Rx Delayed Rel] losartan 25 mg tablet 25 mg PO QAM #30 tabs 03/31/24 Rx ondansetron HCl 4 mg tablet 4 mg PO Q6H PRN nausea and 03/31/24 Rx vomiting #60 tabs pantoprazole 40 mg tablet,delayed 40 mg PO BID 14 days #28 tabs 03/31/24 Rx release (Protonix) sucralfate 100 mg/mL oral 1 g (10 mL) PO QID #48 mL 03/31/24 Rx suspension Hospital Stay Data Consultations 03/27/24 00:48 ED Decision to Admit Stat 03/29/24 11:50 Consult Gastroenterology Routine Procedures Performed Operation Date: 03/30/24 16:55 Actual Procedures p EGD Biopsy Cytology - Hermilo Zapata MD Diagnostic Imagining Performed Abdomen/Pelvis CT 03/26/24 21:59 Exam(s): CT ABDOMEN + PELVIS With Contrast IV Amt: 89 ml optiray 320 EXAM: CT Abdomen and Pelvis With Intravenous Contrast CLINICAL HISTORY: Reason for exam: n/v, mid abd pain. TECHNIQUE: Axial computed tomography images of the abdomen and pelvis with intravenous contrast. CTDI is 7.22 mGy and DLP is 330.84 mGy-cm. Automated exposure control was utilized for the study. A dose lowering technique was utilized adhering to the principles of ALARA. CONTRAST: Patient received 89 ml optiray 320 of IV contrast COMPARISON: No relevant prior studies available. FINDINGS: Lung bases: Unremarkable. No mass. No consolidation. Mediastinum: Distal esophageal wall thickening. ABDOMEN: Liver: Unremarkable. No mass. Gallbladder and bile ducts: Unremarkable. No calcified stones. No ductal dilation. Pancreas: Unremarkable. No mass. No ductal dilation. Spleen: Unremarkable. No splenomegaly. Adrenals: Unremarkable. No mass. Kidneys and ureters: Hyperdensities within the kidneys likely reflects contrast excretion rather than stones. No hydronephrosis. Stomach and bowel: Unremarkable. No obstruction. No mucosal thickening. PELVIS: Appendix: Right lower quadrant postsurgical changes, likely appendectomy. Bladder: Bladder wall thickening of somewhat distended bladder. Reproductive: Unremarkable as visualized. ABDOMEN and PELVIS: Intraperitoneal space: Minimal free fluid in the pelvis. No free air. Bones/joints: No acute fracture. No dislocation. Soft tissues: Unremarkable. Vasculature: Unremarkable. No abdominal aortic aneurysm. Lymph nodes: Unremarkable. No enlarged lymph nodes. IMPRESSION: 1. Distal esophageal wall thickening. May represent esophagitis. 2. Bladder wall thickening of somewhat distended bladder. Correlate for cystitis. 3. Minimal free fluid in the pelvis. Nonspecific although atypical in males. Electronically signed by: Foreign Rhodes M.D. 03/27/24 00:22 AM Chest X-Ray 03/27/24 12:43 SINGLE VIEW CHEST CLINICAL HISTORY: Cough. Leukocytosis FINDINGS: An AP, portable, upright chest radiograph obtained. No prior studies are available for comparison at the time of dictation. The cardiomediastinal silhouette is unremarkable. Question faint left upper lobe opacities . The lungs and pleural spaces are otherwise clear. No pneumothorax is seen. The bony thorax is grossly intact. IMPRESSION: Question faint left upper lobe opacities. Correlate clinically for evidence of a mild pneumonitis. Radiographic follow-up to resolution is recommended. ACT 112: Negative or not required by law. Electronically signed by: Tera Lainez M.D. 03/27/2024 8:27 PM KUB X-Ray 03/29/24 13:26 KUB CLINICAL HISTORY: Gastroparesis. Generalized abdominal pain. Vomiting. FINDINGS: An AP portable, supine abdominal radiograph is correlated with abdominal CT dated 03/26/2024. Suture material projects over the right midabdomen. There is no bowel obstruction. Moderate fecal retention is seen throughout the colon. There is no evidence of intraperitoneal free air on this supine image. There are no abnormal abdominal calcifications. An indeterminate radiodensity projecting over the left abdomen may be external to the patient. The bony structures appear intact. IMPRESSION: Moderate constipation. Electronically signed by: Tera Lainez M.D. 03/29/2024 3:44 PM Mesenteric US 03/30/24 00:00 DOPPLER ULTRASOUND OF THE MESENTERIC VASCULATURE CLINICAL HISTORY: Intractable abdominal pain. Vomiting. FINDINGS: Real-time, grayscale and color Doppler sonography of the mesenteric vasculature is performed. The abdominal aorta is patent with velocities measure up to 112 cm per second. The celiac trunk and superior mesenteric artery are widely patent. Velocities in the celiac trunk measure up to 156 cm/s and velocities in the superior mesenteric artery measure up to 272 cm/s. This is almost certainly artifactual, as the vessel was shown to be widely patent by CT. IMPRESSION: 1. The superior mesenteric and celiac arteries are patent. 2. Elevated velocities within the superior mesenteric artery are almost certainly artifactual. The vessel was shown to be widely patent on CT. Dictated: 03/30/2024 9:07 AM Transcribed: 03/30/2024 9:17 AM Fernandez [id number] [email or web address] Electronically signed by: Tera Lainez M.D. 03/30/2024 3:20 PM Pending Results Patient Have Any Pending Studies at Discharge: No Discharge Instructions Given to Patient (Per Discharging Provider) Follow up with GI specialist in [place] tomorrow, 04/01/24 at 8:00 AM. Follow their recommendations. Your imaging and results have been sent to them. Hold your Synthroid until you talk with/you are seen by your natural resource specialist. You can call their office to schedule a hospital follow-up appointment. Prescriptions sent to pharmacy: -Erythromycin 250 mg 3 times daily: Take this before meals -Losartan 25 mg every morning: This is to help with blood pressure and protect your kidneys -Zofran 4 mg p.o. every 6 hours as needed: This is to help with nausea -Protonix 40 mg twice daily: This reduces amount of acid produced in your stomach and will help with your esophagitis -Carafate 4 times daily: This will help your esophagitis Total Time Total Time Spent Total Time Spent (In Minutes): Greater than 30 minutes spent completing this discharge process including direct patient care, medication reconciliation, documentation, review of labs and images, and coordination of care. Coding Level of Care Code 99862 INP/OBS DISCH >30 MIN Diagnoses Nausea & vomiting R11.2 Hypothyroidism, postablative E89.0
[2024-04-02 11:12] LABS: Porphobilinogen Ran Ur 0.107 mg/g creat (<0.22)
== END 2024-03-31 17:51 | disposition home or self-care (01) | DRG 74 ==
LOC: ED 19:16 → SUATTDRO 03-27 02:08 → 3E 03-27 02:08